=== PATIENT | male | born 1930 | race Caucasian/White ===

== ENCOUNTER 2017-10-28 05:20 | Inpatient (IN) | payer OTHER ==
[2017-10-16 13:01] LABS: HEMATOCRIT 39.6 % (42.0-52.0); HEMOGLOBIN 13.5 gm/dL (14.0-18.0); MCH 33.8 pg (26.0-34.0); MCV 99.3 fL (80.0-100.0); RBC 3.98 mil/uL (4.50-6.00); RDW 13.4 % (10.5-14.5); WBC 5.9 thou/uL (4.0-11.0)
[2017-10-16 13:08] LABS: ALBUMIN 3.7 g/dL (3.4-5.0); CALCIUM 9.8 mg/dL (8.5-10.1); CREATININE 1.8 mg/dL (0.7-1.3); POTASSIUM 4.5 mmol/L (3.5-5.1)
[2017-10-16 13:13] LABS: PROTIME 10.6 Seconds (9.3-11.4)
[2017-10-16 13:40] LABS: URINE BILIRUBIN NEGATIVE (Negative); URINE BLOOD NEGATIVE (Negative); URINE CLARITY CLEAR; URINE COLOR YELLOW; URINE GLUCOSE-RANDOM* NEGATIVE (Negative); URINE KETONES NEGATIVE (Negative); URINE LEUKOCYTES-REFLEX NEGATIVE (Negative); URINE NITRITE-REFLEX NEGATIVE (Negative); URINE PROTEIN (DIPSTICK) NEGATIVE (Negative); URINE UROBILINOGEN 0.2 E.U./dl (0.2-1.0)
[~2017-10-28] VITALS: Ht 195.6 cm; Wt 93.4 kg
[2017-10-28] VITALS (10 sets, daily range): BP systolic 112–142; BP diastolic 55–72
--- NOTE | ~2017-10-28 | HC ---
[facility] [place] [address] CONSULTATION Name: MILTON KELLEY Room #: 405-P [facility] IN ..#: [id number] Admission: 10/28/17 Attend Phys: Lisandro Melo MD Discharge: 11/05/17 Date of : 32 Report #: [id number] THIS REPORT FOR: //name// CC: Lisandro Martinez DATE OF SERVICE: 11/03/2017 HISTORY OF PRESENT ILLNESS: This is an 87-year-old who is not able to provide any reliable history. I talked to the patient's nurses looking after this patient and I reviewed the patient's records. Neurology consultation is requested to evaluate the patient for any etiology for altered mental status. This patient underwent surgery for the hip and he has been confused since the surgery. Nurses tell me he was functional his baseline, but I do not know what his exact status was because I cannot reach the and I have tried to reach her twice. I reviewed his prior records. In some of the prior records, alcohol abuse has been mentioned, especially one from 2014, but I do not know how bad was that and whether he was still using alcohol or not. REVIEW OF SYSTEMS: I carried out 14-point review of system from the records. It looks like this patient has developed some renal problems, but they are improving and his creatinine is back to normal. He does have a history of renal problems in the past also. He is anemic and his hemoglobin on 10/16/2017 was 13.5 and now is running about 8.6. His TSH and vitamin B12 have been checked. They are normal, but his vitamin D is somewhat low. He has not been noticed to have any focal neurological deficit as much as his examination can be carried out. I have not been able to talk to the , but from 14-point review of system, it would appear that rest of the 14-point review of system was noncontributory, except there is a note about seizure disorder in this patient. I need to talk to the to get further history of seizures, but he has been on Keppra, but he has been on Keppra for a long period of time. He has been on multiple medications for his surgery and those narcotics are being cut back. He is also on metformin and I assume that he has diabetes, but he does not provide very good history in that regard. His record indicates that he does have coronary artery disease. Presently, the patient is also on anticoagulant. PAST MEDICAL HISTORY: By record, it looks like he has seizures, but it is difficult to tell what kind of seizure he has. FAMILY HISTORY: He says there is no family history of early strokes, but it is not a very reliable history from him because of confusion. SOCIAL HISTORY: He is . I am not able to reach the patient's to get further social history, especially about his drinking or seizures and we will try to continue to reach her. [address] [address] CONSULTATION Name: ALLIEMILTON Room #: 405-P [facility] IN ..#: [id number] Admission: 10/28/17 Attend Phys: Lisandro Melo MD Discharge: 11/05/17 Date of : 32 Report #: [id number] PHYSICAL EXAMINATION: NEUROLOGIC: His examination indicates he is alert. He is responsive. He could not tell me what date it is, but did tell me what month it is. He could not name the president, but he knew he was in [facility]. His speech looks intact, but his memory and fund of knowledge are diminished. His cooperation for the rest of the examination was extremely poor, and therefore, the examination was very difficult. It looks like he can move all 4 extremities. He could not cooperate with detailed position sense examinations. His tone looks symmetrical. He does not appear to have meningeal sign. He did not cooperate with [id number] or the fundus examination. Reflexes in the upper extremities are symmetrical. He is a very well-developed individual who does not have any dysmorphic features of eyes, ears and face. His hearing and visual looks adequate. He does not appear to have any thyroid mass. It is difficult to tell about his pulses. VITAL SIGNS: His blood pressure is 133/99, respirations 18, pulse is 69 and temperature is 97.8. LABORATORY DATA: His hemoglobin is 8.6, but his sodium is normal. His TSH is mildly diminished and so is vitamin D. He did have a CT scan of the head that does not show any acute abnormality. IMPRESSION: 1. Postoperative confusion. 2. History of seizure. 3. We need to reach the patient's to ask about previous history of alcohol abuse and his alcohol drinking habits recently. 4. Postoperative anemia. 5. Postoperative use of psychotropic medication, which has been stopped. RECOMMENDATIONS: Very difficult to give any recommendation at the moment. I will continue to reach the patient's and get some more history from her. However, because of the prior history of seizures, I will go ahead and get an EEG done in this patient. I will go ahead and give him thiamine until I can get more history from the and especially, in light of his recent kidney failure. I agree with your plan of stopping his narcotic. Narcotics disappear from serum reasonably fast, but whichever have gone into the brain take a little while to metabolize, especially in the elderly population. His rest of the workup will depend upon the outcome of these testings and my discussion with the patient's and EEG because of his prior history of seizure. We will follow up this patient tomorrow and thank you very much for allowing me to share in the management of this patient. <ELECTRONICALLY SIGNED> By: Kale Marx MD 11/09/17 1549 1714 0000 Kale Marx MD /nt
--- NOTE | ~2017-10-28 | O ---
[facility] [place] [address] OPERATIVE REPORT Name: MILTON KELLEY Room #: 405-P [facility] IN .R.#: [id number] Admission: 10/28/17 Attend Phys: Lisandro Melo MD Discharge: Date of : 32 Report #: [id number] THIS REPORT FOR: //name// CC: Lisandro Martinez DATE OF SERVICE: 10/28/2017 PREOPERATIVE DIAGNOSIS: End-stage degenerative arthritis, left hip. POSTOPERATIVE DIAGNOSIS: End-stage degenerative arthritis, left hip. PROCEDURE: Left total hip arthroplasty. SURGEON: Lisandro Melo MD INDICATIONS: This frail, but still active and ambulatory 87-year-old gentleman presents with progressive left hip pain and limited range of motion. Clinical and radiographic findings are consistent with rather severe degenerative arthritis involving the hip. He also has moderate degenerative lumbar spondylosis probably with some radicular pain as well. His primary problem seems to be the left hip. He has tried conservative measure without much benefit. He has elected to go ahead with left total hip arthroplasty. The patient and family all understand well the treatment options and potential risks and benefits. DESCRIPTION OF PROCEDURE: The patient was taken to the operating room where he was placed under general anesthesia. Prophylactic intravenous antibiotics were administered. He was turned to the right lateral decubitus position. The left hip, thigh and leg were meticulously prepped and draped. A slightly curving posterolateral skin incision was made. This was carried through subcutaneous tissues to expose the posterior aspect of the hip joint. The short external rotators and capsule were taken down and preserved and tagged with several #1 Tevdek sutures. The hip was dislocated. Marked degenerative change on both the femoral head and the acetabulum were noted. A femoral neck osteotomy was performed and the canal was opened with hand reamers and hand broaches. The Malik and Nephew hip system was utilized. The Synergy press fit high offset stem system seemed to fit most appropriately. A size 15 stem trial was placed and this seated nicely and appeared to be very secure. The calcar was trimmed down to an appropriate level. Attention was then directed to the acetabulum. Spherical reamers were used, gradually advancing up to a size 60 mm reamer diameter. A 60-mm 3-hole hemispherical Malik and Nephew StikTite shell was then inserted, this was positioned and alignment with his true acetabulum, which placed this in about 45 degrees off of vertical and about 20 degrees of anteversion. It seated nicely and appeared to be secure. In addition, 3 screws were placed through the apex of the shell engaging good periacetabular bone [address] [address] OPERATIVE REPORT Name: MILTON KELLEY Room #: 405-P [facility]..#: [id number] Admission: 10/28/17 Attend Phys: Lisandro Melo MD Discharge: Date of : 32 Report #: [id number] resulting in additional good stability. A 40-mm polyethylene liner with a 10-degree lip was then positioned placing the 10-degree elevated rim at about the 10 o'clock posterior position. This was inserted and seated nicely and appeared to be secure. A trial reduction was performed and once again the size 15 stem fit nicely. A lateral offset and +4 mm neck length was tried. This resulted in satisfactory alignment, range of motion, stability and leg length. The trial component was removed and the permanent Malik and Nephew size 15 Synergy high offset stem was inserted, placing this in about 20 degrees of anteversion. It seated nicely and appeared to be secure. A femoral head was then inserted using the 40-mm diameter head with a +4 mm taper neck. This was impacted onto the Martinez taper neck and seated nicely and appeared to be secure. The hip was reduced and once again alignment, range of motion, stability and leg length were assessed and felt to be satisfactory. The wound was copiously irrigated. Good hemostasis was established. The wound was then closed initially using the #1 Tevdek sutures to close the capsule and posterior short rotators. This resulted in additional overall hip stability. I did not feel Hemovac drain was necessary as there was really no bleeding at this point. The fascia was then closed with multiple #1 Vicryl sutures. The subcutaneous tissues were closed with 0 Monocryl. The skin was closed with skin kevan. A sterile dressing was applied. The patient was awakened and returned to recovery room in good condition. <ELECTRONICALLY SIGNED> By: Lisandro Melo MD 10/29/17 0810 1128 1240 Lisandro Melo MD /nt
--- NOTE | ~2017-10-28 | EEG ---
[facility] [place] [address] ELECTROENCEPHALOGRAM Name: MILTON KELLEY Room #: 405-P [facility] IN M.R.#: [id number] Admission: 10/28/17 Attend Phys: Lisandro Melo MD Discharge: 11/05/17 Date of : 32 Report #: [id number] THIS REPORT FOR: //name// CC: Lisandro Martinez DATE OF SERVICE: 11/03/2017 This patient is being evaluated for altered mental status. EEG was done by placing the electrodes by standard 10-20 system of electrode placement. Both referential and sequential montages were used for recording. Background activity in this patient's EEG is about 8 Hz and 30 microvolts. It is a poorly formed background activity. Background activity is intermixed with theta range slowing on both sides. The patient went to sleep that is associated with bilateral slowing, vertex sharp waves and sleep spindle. Photic stimulation is unremarkable. Throughout the record, no active epileptiform activity was noted. IMPRESSION: This is an abnormal EEG because it is intermixed with theta range slowing on both sides. That is a nonspecific abnormality, which can occur with encephalopathy, effect of psychotropic medication, dementia, etc. Clinical correlation is recommended. <ELECTRONICALLY SIGNED> By: Kale Marx MD 11/09/17 1552 1452 1552 Kale Marx MD /nt
[~2017-10-28 05:20] MED LIST: ACETAMINOPHEN325 M1 PO; ADULT LOW DOSE81 MG PO; ALBUTEROL INH INH; ALEVE220 MG PO; AMARYL4 MG PO; ASPIR 8181 MG PO; ASPIRIN EC81 M1 PO; ASPIRIN325 PO; ATORVASTATIN CA40 MG PO; BACLOFEN 10 MG10 MG PO; COLACE100 MG PO; COUMADIN 2 MG TA2 M1 PO; DOXYCYCLINE 10100 M1 PO; ENDOCET 5-3251 EACH PO; ENOXAPARIN30 MG/0.3 SUBQ; FOSINOPRIL SODI40 M1 PO; FUROSEMIDE 20 M20 M1 PO; GLUCOPHAGE500 MG PO; HYDROCODON-ACE1 EAC5 PO; IBUPROFEN 200200 M1 PO; KEPPRA 500 MG500 M2 PO; LASIX 20 MG TAB20 MG PO; LISINOPRIL40 MG PO; LOPRESSOR 50 MG50 M1 PO; LOPRESSOR50 PO; METFORMIN HCL500 M2 PO; MONOPRIL10 MG PO; NEURONTIN 300300 M1 PO; OMEPRAZOLE 20 M20 MG PO; PLAVIX 75 MG TA75 M1 PO; PREDNISONE 10 M10 M1 PO; PRILOSEC 20 MG20 MG PO; PROAIR HFA8.5 GM INH; PROTONIX40 M1 PO; SIMVASTATIN40 MG PO; TOPROL XL50 MG PO; TRAMADOL 50 MG50 MG PO; TRINATE TABLET1 TAB PO; VITAMIN B-1100 M1 PO; ZOCOR80 MG PO
[2017-10-29] VITALS: BP 116/63
[2017-10-29 04:00] VITALS: BP 115/66
[2017-10-29 05:33] LABS: HEMATOCRIT 28.4 % (42.0-52.0); HEMOGLOBIN 9.8 gm/dL (14.0-18.0); MCHC 34.5 g/dL (28.0-37.0); MCV 98.5 fL (80.0-100.0); RBC 2.88 mil/uL (4.50-6.00); RDW 13.2 % (10.5-14.5); WBC 7.4 thou/uL (4.0-11.0)
[2017-10-29 08:13] VITALS: BP 108/66
[2017-10-29 15:43] VITALS: BP 94/48
[2017-10-29 20:00] VITALS: BP 107/63
[2017-10-30 04:00] VITALS: BP 110/67
[2017-10-30 06:16] LABS: HEMATOCRIT 28.8 % (42.0-52.0); HEMOGLOBIN 9.7 gm/dL (14.0-18.0); MCH 33.5 pg (26.0-34.0); MCHC 33.8 g/dL (28.0-37.0); MCV 99.1 fL (80.0-100.0); RBC 2.91 mil/uL (4.50-6.00); RDW 13.4 % (10.5-14.5); WBC 8.7 thou/uL (4.0-11.0)
[2017-10-30 07:33] VITALS: BP 99/65
[2017-10-30 12:50] VITALS: BP 94/73
[2017-10-30 12:55] LABS: CALCIUM 8.8 mg/dL (8.5-10.1); CREATININE 1.7 mg/dL (0.7-1.3); MAGNESIUM 1.6 mg/dL (1.8-2.4); POTASSIUM 4.1 mmol/L (3.5-5.1)
[2017-10-30 15:28] VITALS: BP 108/60
[2017-10-30 19:44] VITALS: BP 99/56
[2017-10-31 04:00] VITALS: BP 127/70
[2017-10-31 05:46] LABS: HEMATOCRIT 25.1 % (42.0-52.0); HEMOGLOBIN 8.6 gm/dL (14.0-18.0); MCH 34.1 pg (26.0-34.0); MCHC 34.3 g/dL (28.0-37.0); MCV 99.2 fL (80.0-100.0); RBC 2.53 mil/uL (4.50-6.00); RDW 13.6 % (10.5-14.5); WBC 10.8 thou/uL (4.0-11.0)
[2017-10-31 05:58] LABS: CALCIUM 8.3 mg/dL (8.5-10.1); CREATININE 1.8 mg/dL (0.7-1.3); MAGNESIUM 1.8 mg/dL (1.8-2.4); POTASSIUM 4.2 mmol/L (3.5-5.1)
[2017-10-31 09:03] VITALS: BP 114/57
[2017-10-31 09:56] LABS: % SATURATION 11 % (20-39); IRON 14 ug/dL (65-175); TIBC 122 ug/dL (250-450)
[2017-10-31 09:59] LABS: TSH 0.236 uIU/mL (0.358-3.740)
[2017-10-31 18:18] VITALS: BP 123/68
[2017-10-31 19:37] VITALS: BP 118/65
[2017-10-31 21:10] LABS: 25-HYDROXY TOTAL 24.4 ng/mL (30.0-100.0)
[2017-11-01 05:05] VITALS: BP 120/60
[2017-11-01 07:33] VITALS: BP 101/63
[2017-11-01 16:43] VITALS: BP 137/61
[2017-11-01 20:00] VITALS: BP 144/84
[2017-11-02 04:00] VITALS: BP 142/85
[2017-11-02 06:45] LABS: ABSOLUTE NEUTROPHILS 4.9 thou/uL (1.4-8.2); BASOPHILS 0.3 % (0.0-2.0); EOSINOPHILS 2.2 % (0.0-3.0); HEMATOCRIT 23.9 % (42.0-52.0); HEMOGLOBIN 8.1 gm/dL (14.0-18.0); LYMPHOCYTES 11.1 % (24.0-44.0); MCH 33.4 pg (26.0-34.0); MCHC 33.9 g/dL (28.0-37.0); MCV 98.6 fL (80.0-100.0); MONOCYTES 8.3 % (1.0-8.0); PLATELET COUNT 154 thou/uL (150-400); POLYS 78.1 % (36.0-66.0); RBC 2.42 mil/uL (4.50-6.00); RDW 13.5 % (10.5-14.5); WBC 6.2 thou/uL (4.0-11.0)
[2017-11-02 06:51] LABS: CALCIUM 8.5 mg/dL (8.5-10.1); CREATININE 1.4 mg/dL (0.7-1.3); POTASSIUM 3.9 mmol/L (3.5-5.1)
[2017-11-02 08:11] VITALS: BP 159/92
[2017-11-02 21:02] VITALS: BP 161/90
[2017-11-03 05:07] VITALS: BP 141/83
[2017-11-03 06:42] LABS: HEMATOCRIT 25.1 % (42.0-52.0); HEMOGLOBIN 8.6 gm/dL (14.0-18.0); MCH 33.8 pg (26.0-34.0); MCHC 34.3 g/dL (28.0-37.0); MCV 98.5 fL (80.0-100.0); RBC 2.55 mil/uL (4.50-6.00); RDW 13.4 % (10.5-14.5); WBC 6.5 thou/uL (4.0-11.0)
[2017-11-03 07:03] LABS: ALBUMIN 2.1 g/dL (3.4-5.0); CALCIUM 8.6 mg/dL (8.5-10.1); CREATININE 1.1 mg/dL (0.7-1.3); PHOSPHORUS 2.7 mg/dL (2.5-4.9); POTASSIUM 3.7 mmol/L (3.5-5.1)
[2017-11-03 09:16] VITALS: BP 133/99
[2017-11-03 17:54] VITALS: BP 149/92
[2017-11-03 20:00] VITALS: BP 159/90
[2017-11-03 22:06] LABS: LEVETIRACETAM (KEPPRA) 25.2 ug/mL (10.0-40.0)
[2017-11-04 04:00] VITALS: BP 166/92
[2017-11-04 08:33] VITALS: BP 147/92
[2017-11-04 16:30] VITALS: BP 135/76
[2017-11-04 19:55] VITALS: BP 154/78
[2017-11-05 03:22] VITALS: BP 122/81
[2017-11-05 08:55] VITALS: BP 135/81
[2017-11-05] MEDS ORDERED: XARELTO10 MG PO (09:16)
[2017-11-05] MEDS ORDERED: FLOMAX0.4 MG PO (09:16)
[2017-11-05 12:14] VITALS: BP 135/81
== END 2017-11-05 13:35 | DRG 469 ==
LOC: TBA 05:20 → 4N 05:20 → PRE 05:35 → 4N 13:10 → PRE 14:00 → 4N 11-05 13:35
PROVIDERS: Hospitalist; Internal Medicine Geriatric Medicine; Orthopaedic Surgery; Registered Nurse
PROC: 0SRB01A Replacement of Left Hip Joint with Metal Synthetic Substitute, Uncemented, Open Approach (ICD-10-PCS; principal; 2017-10-28)
PROC: 4A00X4Z Measurement of Central Nervous Electrical Activity, External Approach (ICD-10-PCS; 2017-11-04)
DX: M16.12 Unilateral primary osteoarthritis, left hip (principal); G93.40 Encephalopathy, unspecified; D62 Acute posthemorrhagic anemia; N17.9 Acute kidney failure, unspecified; F05 Delirium due to known physiological condition; I25.10 Atherosclerotic heart disease of native coronary artery without angina pectoris; N18.9 Chronic kidney disease, unspecified; E78.5 Hyperlipidemia, unspecified; I12.9 Hypertensive chronic kidney disease with stage 1 through stage 4 chronic kidney disease, or unspecified chronic kidney disease; G40.909 Epilepsy, unspecified, not intractable, without status epilepticus; R33.9 Retention of urine, unspecified; R63.0 Anorexia; Z68.24 Body mass index [BMI] 24.0-24.9, adult; Z79.84 Long term (current) use of oral hypoglycemic drugs; Z79.899 Other long term (current) drug therapy; Z88.0 Allergy status to penicillin
CPT/HCPCS: 10790; 50010; 50101; 50382; 50414; 51412; 51771; 53000; 53367; 56521; 56525; 56527; 62110; 62900; 64031; 70005

== ENCOUNTER 2017-11-25 13:59 | Inpatient (IN) | payer OTHER ==
[~2017-11-25] VITALS: Ht 182.9 cm; Wt 88.5 kg
--- NOTE | ~2017-11-25 | HC ---
[facility] [place] [address] CONSULTATION Name: MILTON KELLEY Room #: 450-P [facility]..#: [id number] Admission: 11/25/17 Attend Phys: Meet Moore MD Discharge: 11/28/17 Date of : 32 Report #: [id number] THIS REPORT FOR: //name// CC: Meet Martinez DATE OF SERVICE: 11/28/2017 PERSONAL PHYSICIAN: Dr. Srinivasa Martinez. CHIEF COMPLAINT: Left heel ulcer. HISTORY OF PRESENT ILLNESS: The patient is an 87-year-old white male who is approximately 1 month status post left hip total arthroplasty. After the hip repair, the patient was discharged to a rehab unit and he supposedly developed a left heel decubitus ulcer. The patient states that he has no pain associated with the ulcer. He was discharged to home with this ulcer and while at home, the past couple of days, his family noted he was having increasing weakness and difficulty ambulating. They brought him back to the Emergency Department. He was admitted. The patient was found to have a urinary tract infection. Otherwise, everything else seems to be within normal limits. We were asked to see the patient for the left heel ulceration for care at this time as well as followup care once he is discharged. The patient denies any previous ulcerations or wounds he could not heal on his own. The patient states otherwise he is actually feeling better now than he was a couple of days ago. PAST MEDICAL HISTORY: Significant for hypertension, previous knee replacement on the left in 2000, right shoulder arthroplasty, high cholesterol, coronary artery disease with cardiac stents, chronic obstructive pulmonary disease. CURRENT MEDICATIONS: Multiple, I reviewed the patient's medication list. DRUG ALLERGIES: PENICILLIN. SOCIAL HISTORY: The patient does not smoke or drink alcohol. FAMILY HISTORY: Not pertinent to current medical condition. REVIEW OF SYSTEMS: CONSTITUTIONAL: The patient denies fevers or chills. NEUROLOGIC: The patient has overall generalized weakness upon admission, which has improved. No isolated weakness in arms or legs. EYES: No complaints. ENT: No complaints. CARDIAC: The patient has no chest pain, palpitations, peripheral edema. RESPIRATORY: The patient has no shortness of breath, cough, wheezes. [address] [address] CONSULTATION Name: MILTON KELLEY Room #: 450-P [facility].#: [id number] Admission: 11/25/17 Attend Phys: Meet Moore MD Discharge: 11/28/17 Date of : 32 Report #: [id number] GASTROINTESTINAL: The patient has no nausea, vomiting, abdominal pain. GENITOURINARY: The patient has no urgency or frequency. MUSCULOSKELETAL: The patient has mild pain in his left hip from the surgery. SKIN: There is a decubitus ulcer on the left heel. PHYSICAL EXAMINATION: VITAL SIGNS: Temperature 36.7, pulse 72, respirations 19, BP 130/64. GENERAL: This is alert and oriented x 3, pleasant, elderly white male who is in no acute distress. HEENT: Normocephalic, atraumatic. Mucous membranes are dry. Pupils are round. Sclerae white. NECK: Supple, nontender. LUNGS: Clear. HEART: Regular. ABDOMEN: Soft, nontender. EXTREMITIES: The patient moves all extremities without difficulty. Distal pulses are 1+ and symmetric, dorsalis pedis and posterior tibial. Evaluation of left heel reveals a left heel ulcer with a rim of granulation tissue and then centrally a soft intact eschar. There is no drainage. It is nontender. No tunneling or undermining. Periulcer is intact without significant erythema, warmth or signs of infection. No other associated ulcerations are noted on the foot or toes. Right heel is intact. NEUROLOGIC: Cranial nerves 2-12 are grossly intact. Motor and sensory grossly intact. LABORATORY DATA: White count 7.1, hemoglobin 9.6, BUN 24, creatinine 1.3, albumin 2.6, prealbumin 20.9. WOUND CARE COURSE: I spoke with the patient that at this point in time given his heel ulcer that developed after his hip surgery I would like to have arterial Doppler performed to evaluate for underlying arterial disease as a contributing factor to the ulceration. This will be ordered for this morning. The patient is actually scheduled for discharge possibly later today to a skilled facility for further rehabilitation. IMPRESSION: 1. Unstageable decubitus ulcer, left heel, present on admission. 2. Status post left total hip arthroplasty one month ago. 3. Generalized debility secondary to #2. 4. Protein calorie malnutrition, severe with an albumin of 2.6. PLAN: We will start Betadine to the heel ulcer daily. The patient is to have heel protection at all times when he is in bed. Arterial Doppler will be ordered to evaluate for underlying arterial disease as a contributing factor to the ulcer. The patient, I think, pending the arterial Dopplers is cleared to go to a skilled facility for further rehabilitation. We will follow the patient at [facility] [address] [place] [address] CONSULTATION Name: MILTON KELLEY Room #: 450-P [facility].#: [id number] Admission: 11/25/17 Attend Phys: Meet Moore MD Discharge: 11/28/17 Date of : 32 Report #: [id number] the rehab facility as well. Also make sure he maximizes his oral protein supplementation for healing. I appreciate the ability to consult. By: [id number] Curt Magdaleno MD /nt
--- NOTE | ~2017-11-25 | HC ---
[facility] [place] [address] CONSULTATION Name: MILTON KELLEY Room #: 450-P [facility] IN .R.#: [id number] Admission: 11/25/17 Attend Phys: Meet Moore MD Discharge: Date of : 32 Report #: [id number] THIS REPORT FOR: //name// CC: Meet Martinez DATE OF SERVICE: 11/27/2017 HISTORY OF PRESENT ILLNESS: This is an 87-year-old white male who had a prior left total hip arthroplasty approximately 4 weeks ago. He was discharged to a group home facility at [facility]. He apparently developed a left heel pressure ulcer. He was discharged to home and his and son noted that he was weak and unable to bear weight and could not walk. He was readmitted to [facility]. He was seen by Orthopedics. X-ray of the hip looks okay. He did have an abnormal UA, but apparently ruled out for urinary tract infection. He does have hypertension, hyperlipidemia, seizure disorder. He has had multiple prior joint replacements. He has been okayed for advancing activity and we are seeing him in rehabilitation medicine consultation. PAST MEDICAL HISTORY: Includes hypertension, knee replacement on the left in 2000, right shoulder arthroplasty, high cholesterol, laminectomy, cardiac stents x 4, COPD, right total knee replacement in April 2011, history of skin ulcers. He had a seizure in August 2017. ALLERGIES: PENICILLIN. HABITS: Former smoker, quit greater than a year ago. No history of alcohol abuse per se per records. SOCIAL HISTORY: He lives in a house with his , no steps, involved son, was unable to ambulate upon coming home from the nursing facility. REVIEW OF SYSTEMS: No current complaints of chest pain or shortness of breath or abdominal discomfort. He did not offer any complaints of hip pain. PHYSICAL EXAMINATION: GENERAL: An 87-year-old white male, in no obvious distress. VITAL SIGNS: Last recorded temperature 97.9, pulse 70, respirations 18, blood pressure 116/60. NEUROLOGIC: He is alert, follows basic 1-step commands. Facies are symmetric. Some decreased shoulder range of motion end range bilaterally. Strength of the upper extremities is grade 4-/5. DTRs are trace to 1. Lower extremities, no focal calf swelling, functional range of motion, strength is grade 3+ to 4-/5. Tone appeared to be intact. ASSESSMENT: An 87-year-old white male with the following problem list: [facility] [address] [place] [address] CONSULTATION Name: MILTON KELLEY Room #: 450-P [facility] IN [facility]#: [id number] Admission: 11/25/17 Attend Phys: Meet Moore MD Discharge: Date of : 32 Report #: [id number] 1. Recent left total hip arthroplasty. 2. Generalized weakness and debilitation. 3. Diabetes mellitus. 4. Multiple prior joint replacements as noted above. 5. Coronary artery disease with prior stenting. 6. History of seizure disorder. 7. Benign prostatic hyperplasia, on Flomax. PLAN: Therapies are further evaluating regarding his current function. Insurance will need to be checked regarding rehab therapy options. By: [id number] Lisandro Baird MD /PMT
[~2017-11-25 13:59] MED LIST changes: +FLOMAX0.4 MG PO; +XARELTO10 MG PO
[2017-11-25 14:03] VITALS: BP 121/72
[2017-11-25 14:36] LABS: ABSOLUTE NEUTROPHILS 4.6 thou/uL (1.4-8.2); BASOPHILS 0.6 % (0.0-2.0); EOSINOPHILS 3.4 % (0.0-3.0); HEMATOCRIT 33.1 % (42.0-52.0); HEMOGLOBIN 10.9 gm/dL (14.0-18.0); LYMPHOCYTES 19.3 % (24.0-44.0); MCH 33.1 pg (26.0-34.0); MCHC 32.9 g/dL (28.0-37.0); MCV 100.5 fL (80.0-100.0); MONOCYTES 10.7 % (1.0-8.0); PLATELET COUNT 268 thou/uL (150-400); RDW 15.7 % (10.5-14.5)
[2017-11-25 14:45] LABS: CALCIUM 9.4 mg/dL (8.5-10.1); CREATININE 1.2 mg/dL (0.7-1.3); POTASSIUM 4.4 mmol/L (3.5-5.1)
[2017-11-25 14:46] LABS: MAGNESIUM 1.9 mg/dL (1.8-2.4)
[2017-11-25] MEDS ORDERED: METFORMIN HCL500 MG PO (15:45)
[2017-11-25] MEDS ORDERED: NEURONTIN 300300 M1 PO (15:45)
[2017-11-25 15:49] LABS: URINE BILIRUBIN NEGATIVE (Negative); URINE BLOOD NEGATIVE (Negative); URINE CLARITY CLEAR; URINE COLOR YELLOW; URINE GLUCOSE-RANDOM* NEGATIVE (Negative); URINE KETONES NEGATIVE (Negative); URINE LEUKOCYTES-REFLEX NEGATIVE (Negative); URINE NITRITE-REFLEX POSITIVE (Negative); URINE PROTEIN (DIPSTICK) NEGATIVE (Negative)
[2017-11-25 15:58] LABS: CRYSTALS None Seen /LPF (None Seen); HYALINE CASTS 4-10 Moderate /LPF (None Seen); MUCUS >6 Heavy strn/LPF (None Seen); SQUAMOUS 0-3 Few /LPF (0-3); URINE RBC None Seen /HPF (0-2); URINE WBC-REFLEX 0-5 Rare /HPF (0-5)
[2017-11-25 17:34] VITALS: BP 126/68
[2017-11-25 17:38] VITALS: BP 128/67
[2017-11-25 18:01] VITALS: BP 128/67
[2017-11-25 19:08] VITALS: BP 113/60
[2017-11-26] VITALS (7 sets, daily range): BP systolic 101–142; BP diastolic 55–94
[2017-11-26 06:19] LABS: HEMATOCRIT 28.7 % (42.0-52.0); HEMOGLOBIN 9.8 gm/dL (14.0-18.0); MCH 33.5 pg (26.0-34.0); MCV 98.3 fL (80.0-100.0); RBC 2.92 mil/uL (4.50-6.00); RDW 15.2 % (10.5-14.5); WBC 6.1 thou/uL (4.0-11.0)
[2017-11-26 06:36] LABS: CALCIUM 9.3 mg/dL (8.5-10.1); CREATININE 1.2 mg/dL (0.7-1.3); POTASSIUM 3.6 mmol/L (3.5-5.1)
[2017-11-27 03:16] VITALS: BP 105/55
[2017-11-27 06:42] LABS: ABSOLUTE NEUTROPHILS 4.7 thou/uL (1.4-8.2); BASOPHILS 0.7 % (0.0-2.0); EOSINOPHILS 3.7 % (0.0-3.0); HEMATOCRIT 28.1 % (42.0-52.0); HEMOGLOBIN 9.6 gm/dL (14.0-18.0); MCH 33.6 pg (26.0-34.0); MCHC 34.1 g/dL (28.0-37.0); MCV 98.7 fL (80.0-100.0); MONOCYTES 9.8 % (1.0-8.0); PLATELET COUNT 209 thou/uL (150-400); POLYS 65.8 % (36.0-66.0); RBC 2.85 mil/uL (4.50-6.00); RDW 15.4 % (10.5-14.5); WBC 7.1 thou/uL (4.0-11.0)
[2017-11-27 07:02] LABS: ALBUMIN 2.6 g/dL (3.4-5.0); CALCIUM 9.1 mg/dL (8.5-10.1); CREATININE 1.3 mg/dL (0.7-1.3); PHOSPHORUS 3.1 mg/dL (2.5-4.9); POTASSIUM 4.2 mmol/L (3.5-5.1)
[2017-11-27 08:00] VITALS: BP 116/60
[2017-11-27 08:14] LABS: % SATURATION 23 % (20-39); IRON 35 ug/dL (65-175); TIBC 153 ug/dL (250-450)
[2017-11-27 15:26] VITALS: BP 119/62
[2017-11-27 21:40] VITALS: BP 133/70
[2017-11-28 05:27] VITALS: BP 130/64
[2017-11-28 07:35] VITALS: BP 139/59
== END 2017-11-28 16:30 | DRG 553 ==
LOC: ER 13:59 → EROBS 16:11 → 4W 16:11
PROVIDERS: Emergency Medicine; Hospitalist; Registered Nurse
DX: M16.12 Unilateral primary osteoarthritis, left hip (principal); E43 Unspecified severe protein-calorie malnutrition; N39.0 Urinary tract infection, site not specified; I10 Essential (primary) hypertension; Z96.653 Presence of artificial knee joint, bilateral; Z96.611 Presence of right artificial shoulder joint; E78.00 Pure hypercholesterolemia, unspecified; K21.9 Gastro-esophageal reflux disease without esophagitis; J44.9 Chronic obstructive pulmonary disease, unspecified; I25.10 Atherosclerotic heart disease of native coronary artery without angina pectoris; G40.909 Epilepsy, unspecified, not intractable, without status epilepticus; N40.0 Benign prostatic hyperplasia without lower urinary tract symptoms; L89.620 Pressure ulcer of left heel, unstageable; K59.00 Constipation, unspecified; D64.9 Anemia, unspecified; E11.65 Type 2 diabetes mellitus with hyperglycemia; Z95.5 Presence of coronary angioplasty implant and graft; Z90.49 Acquired absence of other specified parts of digestive tract; Z98.42 Cataract extraction status, left eye; Z98.41 Cataract extraction status, right eye; Z88.0 Allergy status to penicillin; Z87.891 Personal history of nicotine dependence; Z68.26 Body mass index [BMI] 26.0-26.9, adult; Z79.82 Long term (current) use of aspirin; Z79.899 Other long term (current) drug therapy
CPT/HCPCS: 10045

== ENCOUNTER → 2018-01-14 | Outpatient (CLI) | payer OTHER ==
[~2018-01-14] MED LIST changes: +METFORMIN HCL500 MG PO
== END ==
LOC: HYPER 06:42
DX: E11.621 Type 2 diabetes mellitus with foot ulcer (principal); I70.244 Atherosclerosis of native arteries of left leg with ulceration of heel and midfoot; L97.421 Non-pressure chronic ulcer of left heel and midfoot limited to breakdown of skin; L89.620 Pressure ulcer of left heel, unstageable; I10 Essential (primary) hypertension; I25.10 Atherosclerotic heart disease of native coronary artery without angina pectoris; E78.00 Pure hypercholesterolemia, unspecified; E46 Unspecified protein-calorie malnutrition; K21.9 Gastro-esophageal reflux disease without esophagitis; J43.9 Emphysema, unspecified; Z79.84 Long term (current) use of oral hypoglycemic drugs; Z96.652 Presence of left artificial knee joint; Z98.42 Cataract extraction status, left eye; Z85.828 Personal history of other malignant neoplasm of skin; Z98.41 Cataract extraction status, right eye; Z96.642 Presence of left artificial hip joint; Z87.891 Personal history of nicotine dependence

== ENCOUNTER → 2018-01-29 | Outpatient (CLI) | payer OTHER | LOC: HYPER 07:00 | DX: E11.621 Type 2 diabetes mellitus with foot ulcer (principal); L89.623 Pressure ulcer of left heel, stage 3; I70.245 Atherosclerosis of native arteries of left leg with ulceration of other part of foot; L97.421 Non-pressure chronic ulcer of left heel and midfoot limited to breakdown of skin; I10 Essential (primary) hypertension; I25.10 Atherosclerotic heart disease of native coronary artery without angina pectoris; E78.00 Pure hypercholesterolemia, unspecified; E46 Unspecified protein-calorie malnutrition; K21.9 Gastro-esophageal reflux disease without esophagitis; J43.9 Emphysema, unspecified; Z96.642 Presence of left artificial hip joint; Z96.652 Presence of left artificial knee joint; Z79.84 Long term (current) use of oral hypoglycemic drugs; Z85.828 Personal history of other malignant neoplasm of skin; Z98.42 Cataract extraction status, left eye; Z98.41 Cataract extraction status, right eye; Z87.891 Personal history of nicotine dependence ==

== ENCOUNTER 2018-02-05 15:43 | Inpatient (IN) | payer OTHER ==
[~2018-02-05] VITALS: Ht 193 cm; Wt 86.0 kg
--- NOTE | ~2018-02-05 | EKG ---
[place] [address] [facility] [place] [address] ELECTROCARDIOGRAM REPORT Name: IMLTON KELLEY Jovanni [id number] Admission: 02/05/18 Attend Phys: Discharge: Date of : 32 Report #: [id number] THIS REPORT FOR: //name// [facility] ED Test Date: 2018-02-05 Test Time: 16:00:57 Pat Name: MILTON KELLEY Department: Room: Gender: Director Risk: DAKSHA : 1930 Requested By: Angel Ulloa Order Number: [id number] MD: Gabino Snell Measurements Intervals [place] Rate: 115 P: NE: QRS: -4 QRSD: 95 T: 47 QT: 331 QTc: 458 Interpretive Statements Atrial fibrillation Compared to ECG 04/15/2015 08:03:11 Sinus rhythm no longer present Electronically Signed On 02-05-2018 17:13:41 CDT by Gabino Snell [email or web address] <ELECTRONICALLY SIGNED> By: Gabino Snell MD, [facility] 02/05/18 1713 [address] [facility] Gabino Snell MD, FACC /EPI
--- NOTE | ~2018-02-05 | HC ---
[facility] [place] [place] [address] CONSULTATION Name: MILTON KELLEY Room #: 218-P [facility] IN ..#: [id number] Admission: 02/05/18 Attend Phys: Arianna Wolff Discharge: Date of : 32 Report #: [id number] THIS REPORT FOR: //name// CC: Srinivasa Wolff REASON FOR CONSULTATION: Atrial fibrillation. HISTORY OF PRESENT ILLNESS: The patient is an 87-year-old gentleman with history of prior stenting of the marginal branch and mid LAD in 2012. He has a very remote history of circumflex and distal right coronary stenting. He has dyslipidemia, COPD, hypertension and earlier in the year, underwent elective hip replacement. Prior to his hip operation, he had a normal nuclear stress study performed; normal ejection fraction. His post-procedural hip course has been complicated with ischemic heel ulcer with peripheral interventsion. He has had several rehab stays and has significant functional debility. He is quite frail and has had several non-syncopal falls. Yesterday, his visiting therapist came to his home, his oxygen saturations were low. He was weak. He reported that he has had a fall, at least 2 falls. He was seen in the Emergency Department, where an EKG was performed, demonstrating atrial fibrillation. It is not clear how long he has had this dysrhythmia. He denies palpitations. He denies symptoms from the atrial fibrillation including shortness of breath, palpitations or syncope. 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 SOCIAL HISTORY: Former smoker, quit 50 years ago. FAMILY HISTORY: Notable for cancer and diabetes. REVIEW OF SYSTEMS: All systems negative except as that noted above. PHYSICAL EXAMINATION: GENERAL: Reveals a frail elderly gentleman who is alert and in no distress. VITAL SIGNS: Blood pressure is 107/67, heart rate of 85 and irregular. He is afebrile, 6 feet 4 inches tall, 200 pounds. HEENT: There are neither xanthelasma, subcutaneous xanthomata, oral mucosal or digital cyanosis or kyphoscoliosis present. CHEST: Clear to auscultation and percussion. CARDIAC: Reveals an irregularly irregular rhythm with a normal S1, S2. ABDOMEN: Soft and nontender. EXTREMITIES: Without cyanosis, clubbing or edema. Radial pulses are 2+. NEUROLOGIC: He is alert with a nonfocal exam. [address] [address] CONSULTATION Name: ALLIEMILTON Baig Room #: 218-P [facility] IN M.R.#: [id number] Admission: 02/05/18 Attend Phys: Arianna Wolff Discharge: Date of : 32 Report #: [id number] LABORATORY DATA: Sodium 140, potassium 4.6, creatinine 1.6. ProBNP of 7437. White count 9.5, hemoglobin 11, hematocrit 35, platelet count 234. Chest x-ray is normal. EKG: Atrial fibrillation with a moderate ventricular response. IMPRESSION: 1. Atrial fibrillation of unknown chronicity. This is a largely asymptomatic rhythm disturbance. 2. Coronary artery disease with recent normal stress study. 3. Recurrent falls; general debility. 4. Diabetes. 5. Peripheral vascular disease. RECOMMENDATIONS: 1. Adjust rate controlling medications. 2. The patient is not a favorable anticoagulation candidate given his frailty and frequent non-syncopal falls. 3. Consider cardioversion once safe to be fully anticoagulated and once functional status improves. A rate control strategy is recommended for now. <ELECTRONICALLY SIGNED> By: Gabino Snell MD, [facility] 02/06/18 1046 0800 0822 Gabino Snell MD, FACC /nt
--- NOTE | ~2018-02-05 | 2DMMODE ---
[facility] [address] [place] [address] 2 D/M-MODE ECHOCARDIOGRAM Name: MILTON KELLEY Room #: 218-P [facility] IN ..#: [id number] Admission: 02/05/18 Attend Phys: Arianna Aggarwal Discharge: Date of : 32 Date of Service: 02/06/18 0816 Report #: [id number] THIS REPORT FOR: //name// APPROVED REPORT Study performed: 02/06/2018 06:55:41 EXAM: Comprehensive 2D, Doppler, and color-flow Echocardiogram Patient Location: Bedside Room #: 218 Status: routine BSA: 2.22 HR: 110 bpm BP: 107/67 mmHg Rhythm: Atrial Fibrillation Other Information Study Quality: Adequate Indications Afib. Hx: CAD, stents, COPD, HTN, DM 2D Dimensions RVDd: 31.99 mm LVEF(%): 50.19 (>50%) IVSd: 12.00 (7-11mm) LVOT Diam: 24.88 (18-24mm) LVDd: 51.26 mm PWd: 10.72 (7-11mm) Ascending Ao: 42.46 (22-36mm) LVDs: 38.11 (25-40mm) Aortic Root: 44.37 mm Oh's LVEF: 50.19 % Volumes Left Atrial Volume (Systole) Single Plane 4CH: 61.43 mL Single Plane 2CH: 55.32 mL LA ESV Index: 28.00 mL/m2 Aortic Valve AoV Peak Malik.: 0.93 m/s AO Peak Gr.: 4.36 mmHg LVOT Max P.13 mmHg LVOT Max V: 0.73 m/s YAHAIRA Vmax: 3.81 cm2 Mitral Valve MV Decel. Time: 127.84 ms MV E Max Malik.: 0.83 m/s [facility] [place] [address] [place] [address] 2 D/M-MODE ECHOCARDIOGRAM Name: MILTON KELLEY Room #: 218-P [facility] IN .R.#: [id number] Admission: 02/05/18 Attend Phys: Arianna Aggarwal Discharge: Date of : 32 Date of Service: 02/06/18 0816 Report #: [id number] Pulmonary Valve PV Peak Malik.: 0.75 m/s PV Peak Gr.: 2.29 mmHg Tricuspid Valve TR Peak Malik.: 1.80 m/s TR Peak Gr.: 14.00 mmHg Left Ventricle The left ventricle is normal size. There is normal LV segmental wall motion. Mild basal septal hypertrophy is present. Left ventricular systolic function is normal. LVEF is 55%. This study is not technically sufficient to allow evaluation of the LV diastolic function due to atrial fibrillation. Right Ventricle The right ventricle is normal size. The right ventricular systolic function is normal. Atria The left atrium size is normal. The right atrium size is normal. Aortic Valve The aortic valve is mildly sclerotic. Trace to mild aortic regurgitation. There is no aortic valvular stenosis. Mitral Valve The mitral valve is normal in structure. Mild mitral regurgitation. Tricuspid Valve The tricuspid valve is normal in structure. Trace to mild tricuspid regurgitation. Estimated PAP is 15mmHg plus the right atrial pressure. Pulmonic Valve The pulmonary valve is normal in structure. Trace pulmonic regurgitation. Great Vessels Aortic root is dilated at 4.4cm. Ascending aorta is dilated at 4.2cm. IVC is not well visualized. Pericardium There is no pericardial effusion. [facility] [address] [place] [address] 2 D/M-MODE ECHOCARDIOGRAM Name: ALLIEMILTON Room #: 218-P [facility] IN ..#: [id number] Admission: 02/05/18 Attend Phys: Arianna Aggarwal Discharge: Date of : 32 Date of Service: 02/06/1816 Report #: [id number] <Conclusion> Left ventricular systolic function is normal. There is normal LV segmental wall motion. LVEF is 55%. The aortic valve is mildly sclerotic. Trace to mild aortic regurgitation, no stenosis. The mitral valve is normal in structure. Mild mitral regurgitation. Ascending aorta is dilated at 4.2cm. There is no pericardial effusion. <ELECTRONICALLY SIGNED> By: Gabino Snell MD, [facility] 02/06/18815 5 5 Gabino Snell MD, [facility] /INF
--- NOTE | ~2018-02-05 | HC ---
[facility] [place] [address] CONSULTATION Name: MILTON KELLEY Room #: 218-P [facility] IN .R.#: [id number] Admission: 02/05/18 Attend Phys: Arianna Wolff Discharge: Date of : 32 Report #: [id number] THIS REPORT FOR: //name// CC: Srinivasa Wolff DATE OF SERVICE: 02/06/2018 CHIEF COMPLAINT: Heel ulceration. HISTORY OF PRESENT ILLNESS: This is an 87-year-old male patient with whom I am familiar from wound care evaluation in the outpatient setting. He has had a heel ulceration. He has had peripheral arterial disease and status post percutaneous intervention and is scheduled to go additional possible stenting to the trifurcation vessels involving the left lower extremity. PAST MEDICAL HISTORY: Positive for urinary tract infection, weakness, pain in the left hip, congestive heart failure, hypertension, atrial fibrillation and pressure ulceration to the left heel. ALLERGIES: PENICILLIN. MEDICATIONS: Include acetaminophen, aspirin, atenolol, atorvastatin, diltiazem, enoxaparin, gabapentin, hydrocodone, Keppra, metoprolol, Nitrostat, ondansetron, sodium chloride, tamsulosin, and zolpidem. FAMILY HISTORY: Noncontributory. SOCIAL HISTORY: Negative for current alcohol or tobacco use. He is , accompanied by his . REVIEW OF SYSTEMS: CONSTITUTIONAL: The patient denies fever, chills, weight loss. NEUROLOGICAL: The patient denies focal weakness. ENT: The patient denies earache, nasal drainage or sore throat. CARDIOVASCULAR: The patient denies chest pain, palpitations, or diaphoresis. PULMONARY: The patient denies cough or shortness of breath. GASTROINTESTINAL: The patient denies nausea or abdominal pain. ORTHOPEDIC: The patient is aware of the ulceration in the left heel. Other systems in a 14-point review of systems are negative. PHYSICAL EXAMINATION: VITAL SIGNS: At this time include pulse 73, respiration of 18, blood pressure 99/63, temperature 98.2. GENERAL: This is a chronically ill-appearing male patient, who appears to be in minimal distress. [address] [address] CONSULTATION Name: MILTON KELLEY Room #: 218-P [facility] IN M.R.#: [id number] Admission: 02/05/18 Attend Phys: Arianna Wolff Discharge: Date of : 32 Report #: [id number] HEAD: Normocephalic. NECK: Supple. LUNGS: Clear. HEART: Regular rhythm. ABDOMEN: Soft. Bowel sounds present. EXTREMITIES: Lower extremities demonstrate diminished distal pulses. He has ulceration on the posterior portion of the left heel. Has actually improved since the last time I saw. There is a mix of granulation fibrin and seems close to skin level in terms of total depth. There is no obvious odor or tunneling or undermining noted at this time. CLINICAL IMPRESSION: 1. Pressure ulceration to the left heel, improving. 2. Peripheral arterial disease, status post percutaneous intervention, pending additional angiography. 3. Hypotension. 4. Atrial fibrillation. RECOMMENDATIONS: At this point in time, we will recommend Prevalon boots for pressure prophylaxis. He is in the midst of receiving percutaneous intervention for peripheral arterial disease. He has undergone angioplasty by Dr. Gallagher. I do not feel that he needs urgent care while in the hospital. I think this could be continued to be pursued on an outpatient basis. We will recommend ongoing local care to the heel and Dakin's moist gauze dressing for now. All questions have been answered with the family at bedside. <ELECTRONICALLY SIGNED> By: Manav Mcmillan MD 02/07/18 1131 2036 2159 Manav Mcmillan MD /nt
[2018-02-05 15:53] VITALS: BP 96/68
[2018-02-05 16:31] LABS: BASOPHILS 0.6 % (0.0-2.0); EOSINOPHILS 2.1 % (0.0-3.0); HEMATOCRIT 35.1 % (42.0-52.0); HEMOGLOBIN 11.5 gm/dL (14.0-18.0); LYMPHOCYTES 15.1 % (24.0-44.0); MCH 32.4 pg (26.0-34.0); MCHC 32.9 g/dL (28.0-37.0); MCV 98.4 fL (80.0-100.0); MONOCYTES 8.5 % (1.0-8.0); PLATELET COUNT 234 thou/uL (150-400); POLYS 73.7 % (36.0-66.0); RBC 3.56 mil/uL (4.50-6.00); RDW 14.5 % (10.5-14.5); WBC 9.5 thou/uL (4.0-11.0)
[2018-02-05 16:50] LABS: ANION GAP 8 mmol/L (7-16); BUN 27 mg/dL (7-18); CALCIUM 9.8 mg/dL (8.5-10.1); CHLORIDE 106 mmol/L (98-107); CO2 26 mmol/L (21-32); CREATININE 1.6 mg/dL (0.7-1.3); GLUCOSE 137 mg/dL (74-106); POTASSIUM 4.6 mmol/L (3.5-5.1); SODIUM 140 mmol/L (136-145)
[2018-02-05 16:54] LABS: MAGNESIUM 2.3 mg/dL (1.8-2.4); SGOT 22 U/L (15-37); SGPT 25 U/L (30-65); TOTAL BILIRUBIN 0.5 mg/dL (<0.1-1.0); TOTAL PROTEIN 7.3 g/dL (6.4-8.2); TROPONIN-I < 0.04 ng/mL (<0.06)
[2018-02-05 18:00] VITALS: BP 104/74
[2018-02-05] MEDS ORDERED: NITROGLYCERIN0.4 MG SUBLING (18:06)
[2018-02-05] MEDS ORDERED: MELATONIN3 MG PO (18:06)
[2018-02-05] MEDS ORDERED: UNICOMPLEX M TA1 TA1 PO (18:06)
[2018-02-05] MEDS ORDERED: TYLENOL325 MG PO (18:06)
[2018-02-05] MEDS ORDERED: PLAVIX 75 MG TA75 M1 PO (18:07)
[2018-02-05 18:13] LABS: CHOLESTEROL 110 mg/dL (<200); HDL CHOLESTEROL 41 mg/dL (>40); LDL CHOLESTEROL 60 mg/dL (<100); TC:HDL 2.7 Ratio (Not establshd); TRIGLYCERIDE 47 mg/dL (<150); VLDL 9 mg/dL (<40)
[2018-02-05 18:17] LABS: SERUM ASSESSMENT Clear
[2018-02-05 18:40] LABS: TSH 0.622 uIU/mL (0.358-3.740)
[2018-02-05 19:00] VITALS: BP 114/67
[2018-02-05 20:00] VITALS: BP 113/75
[2018-02-06] VITALS (7 sets, daily range): BP systolic 87–108; BP diastolic 58–73
[2018-02-06 18:12] LABS: URINE BILIRUBIN NEGATIVE (Negative); URINE BLOOD NEGATIVE (Negative); URINE CLARITY CLEAR; URINE COLOR YELLOW; URINE GLUCOSE-RANDOM* NEGATIVE (Negative); URINE KETONES NEGATIVE (Negative); URINE LEUKOCYTES-REFLEX NEGATIVE (Negative); URINE NITRITE-REFLEX NEGATIVE (Negative); URINE PROTEIN (DIPSTICK) TRACE (Negative); URINE UROBILINOGEN 0.2 E.U./dl (0.2-1.0)
[2018-02-06 18:47] LABS: CALCIUM 8.6 mg/dL (8.5-10.1); CREATININE 1.3 mg/dL (0.7-1.3); MAGNESIUM 1.8 mg/dL (1.8-2.4); POTASSIUM 4.5 mmol/L (3.5-5.1)
[2018-02-06 18:58] LABS: APTT 29.6 Seconds (24.5-32.8); PROTIME 10.4 Seconds (9.3-11.4)
[2018-02-07 03:05] VITALS: BP 118/71
[2018-02-07 05:54] LABS: ABSOLUTE NEUTROPHILS 2.5 thou/uL (1.4-8.2); BASOPHILS 0.9 % (0.0-2.0); EOSINOPHILS 6.4 % (0.0-3.0); HEMATOCRIT 28.2 % (42.0-52.0); LYMPHOCYTES 33.6 % (24.0-44.0); MCH 32.6 pg (26.0-34.0); MCHC 33.5 g/dL (28.0-37.0); MCV 97.3 fL (80.0-100.0); PLATELET COUNT 191 thou/uL (150-400); POLYS 49.1 % (36.0-66.0); RBC 2.89 mil/uL (4.50-6.00); RDW 14.2 % (10.5-14.5); WBC 5.1 thou/uL (4.0-11.0)
[2018-02-07 05:55] LABS: HEMOGLOBIN 9.4 gm/dL (14.0-18.0)
[2018-02-07 05:56] LABS: CREATININE 1.2 mg/dL (0.7-1.3); POTASSIUM 3.9 mmol/L (3.5-5.1)
[2018-02-07 08:00] VITALS: BP 127/97
[2018-02-07 12:00] VITALS: BP 123/70
[2018-02-07 14:22] VITALS: BP 123/70
[2018-02-07] MEDS ORDERED: DILTIAZEM 24HR120 M1 PO (14:44)
[2018-02-07] MEDS ORDERED: MIRALAX17 GM PO (14:44)
[2018-02-07 15:11] VITALS: BP 123/70
[2018-02-07 15:42] VITALS: BP 123/70
== END 2018-02-07 16:30 | disposition home health service (06) | DRG 314 ==
LOC: ER 15:43 → EROBS 17:43 → 2N 17:43 → ENTRNSPT 02-07 16:19 → 2N 02-07 16:30
PROVIDERS: Emergency Medicine; Hospitalist
DX: I95.9 Hypotension, unspecified (principal); L89.623 Pressure ulcer of left heel, stage 3; I48.0 Paroxysmal atrial fibrillation; E11.51 Type 2 diabetes mellitus with diabetic peripheral angiopathy without gangrene; E78.00 Pure hypercholesterolemia, unspecified; J44.9 Chronic obstructive pulmonary disease, unspecified; Z96.653 Presence of artificial knee joint, bilateral; I11.0 Hypertensive heart disease with heart failure; Z96.619 Presence of unspecified artificial shoulder joint; I25.10 Atherosclerotic heart disease of native coronary artery without angina pectoris; E86.9 Volume depletion, unspecified; R29.6 Repeated falls; Z96.649 Presence of unspecified artificial hip joint; G40.909 Epilepsy, unspecified, not intractable, without status epilepticus; D64.9 Anemia, unspecified; I71.6 Thoracoabdominal aortic aneurysm, without rupture; K21.9 Gastro-esophageal reflux disease without esophagitis; Z95.5 Presence of coronary angioplasty implant and graft; Z90.49 Acquired absence of other specified parts of digestive tract; Z98.42 Cataract extraction status, left eye; Z98.41 Cataract extraction status, right eye; Z88.0 Allergy status to penicillin; Z87.891 Personal history of nicotine dependence; Z79.82 Long term (current) use of aspirin; Z79.899 Other long term (current) drug therapy
CPT/HCPCS: 10194

== ENCOUNTER 2018-02-10 14:27 | Inpatient (IN) | payer OTHER ==
[~2018-02-10] VITALS: Ht 193 cm; Wt 99.4 kg
--- NOTE | ~2018-02-10 | EKG ---
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 <ELECTRONICALLY SIGNED> By: Jarrell Mittal MD 02/13/18 0754 0708 0708 Jarrell Mittal MD /EPI
--- NOTE | ~2018-02-10 | EKG ---
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 : 1930 Requested By: Juan Stack Order Number: [id number] MD: Gabino Snell Measurements Intervals [place] Rate: 143 P: SC: QRS: -18 QRSD: 93 T: 159 QT: 322 QTc: 497 Interpretive Statements Atrial fibrillation with rapid V-rate Ventricular premature complex Inferior infarct, old Nonspecific ST and T wave abnormality No previous ECG available for comparison Electronically Signed On 02-12-2018 7:52:37 CDT by Gabino Snell [email or web address] <ELECTRONICALLY SIGNED> By: Gabino Snell MD, [facility] 02/12/18 0752 1518 1518 Gabino Snell MD, [facility] /EPI
--- NOTE | ~2018-02-10 | HC ---
[facility] [place] [address] CONSULTATION Name: MILTON KELLEY Room #: 240-P [facility] IN ..#: [id number] Admission: 02/10/18 Attend Phys: Juan Stack MD Discharge: Date of : 32 Report #: [id number] THIS REPORT FOR: //name// CC: Srinivasa Stack DATE OF SERVICE: 02/17/2018 HISTORY OF PRESENT ILLNESS: An 87-year-old white male with history of prior left total hip arthroplasty on 10/28/2017 complicated by some delirium, alcohol withdrawal. He has had several hospitalizations as well as a long term facility stay. He end up being readmitted at this time with persistent diarrhea, was noted to have sepsis with C. diff diagnosed with atrial fibrillation, acute renal failure, C. diff colitis, protein-calorie malnutrition. He has been on PPN. He has been noted to have an unintentional 80-pound weight loss over the last 1-1/2 years. Surgery is involved. He is noted to have duodenitis on CT and there is a consideration for a possible subtotal colectomy with ileostomy. He is currently tolerating a liquid diet and there is consideration for advancing his diet as per discussion with Gastroenterology. He is quite debilitated with medical complexity. He also has a left heel ulcer stage 3 with wound care involved. We are seeing him in rehabilitation medicine consultation. PAST MEDICAL HISTORY: As noted above. He has a history of atrial fibrillation, CHF, prior left total hip replacement, peripheral vascular disease with arterial intervention, left lower extremity. HABITS: Former tobacco abuse, quit greater than a year ago. MEDICATIONS: Please see the full medication listing. This list includes vitamins, herbals, and supplements. SOCIAL HISTORY: Lives in a house with his , 2 steps in. They do have a stair glide, but it is only a partial stair glide. There are still 5 steps that he needs to go up and down. They cannot have a bed on that ground level and he will need to be able to go up and down steps. He has been utilizing a front-wheeled walker. is retired. There is an involved son. REVIEW OF SYSTEMS: Did not offer any current complaints of chest pain, shortness of breath or abdominal discomfort. He has had a couple of stools, but it looks like they are decreasing. PHYSICAL EXAMINATION: GENERAL: An 87-year-old white male in no obvious distress. VITAL SIGNS: Last recorded temperature 97.6, pulse 54, respirations 19, blood pressure 120/64[place] [address] CONSULTATION Name: MILTON KELLEY Room #: 240-P [facility] IN ..#: [id number] Admission: 02/10/18 Attend Phys: Juan Stack MD Discharge: Date of : 32 Report #: [id number] NEUROLOGIC: He is alert, will follow basic 1 step commands. Facies are symmetric. He has functional range of motion of both upper extremities with strength to grade 4-/5. DTRs are trace to 1. In his lower extremities, left heel is dressed. There is no focal calf swelling. Strength is a grade 3+ to 4-/5. DTRs are trace to 1. Transfers were min assist. He did ambulate 50 feet min assist with the walker. In occupational therapy, he is standby assistance for grooming, needing contact guard to try to transfer on and off the toilet with the riser. ASSESSMENT: An 87-year-old white male with the following problem list: 1. Medical complexity with generalized debilitation. 2. Clostridium difficile with Pseudomembranous colitis. 3. Atrial fibrillation. 4. Left heel wound. 5. Septic shock. 6. Renal insufficiency. 7. History of congestive heart failure. 8. Protein-calorie malnutrition, on PPN. 9. History of coronary artery disease with stents. PLAN: Continues on the PPN for now. Encouraging him to further improve his functional mobility and ADLs with PT and OT. Insurance will need to be checked regarding rehab therapy options. We will be glad to follow along with you. <ELECTRONICALLY SIGNED> By: Lisandro Baird MD 02/21/18 1228 1427 0039 Lisandro Baird MD /[facility]
--- NOTE | ~2018-02-10 | HC ---
[facility] [place] [address] CONSULTATION Name: MILTON KELLEY Room #: 240-P [facility] IN ..#: [id number] Admission: 02/10/18 Attend Phys: Juan Stack MD Discharge: Date of : 32 Report #: [id number] THIS REPORT FOR: //name// CC: Srinivasa Stack REFERRAL PHYSICIAN: Dr. Stack. REASON FOR REFERRAL: Acute hypoxic respiratory failure. HISTORY OF PRESENT ILLNESS: The patient is an 87-year-old white male who was admitted on 02/10 with a fall. The patient had complaints of weakness and diarrhea 24 hours prior to presentation. Since then, the patient has been found to have C. difficile colitis with severe sepsis, atrial fibrillation with rapid ventricular response, acute kidney injury. Overnight, the patient became hypoxic. He was placed on BiPAP. With persistent hypoxia, pulmonary consultation was requested. Currently, he is on BiPAP, appears somewhat stable, and he states that he is not dyspneic. Portable chest x-ray performed earlier today shows bibasilar. This appears to be new since admission. PAST MEDICAL HISTORY: As mentioned above including atrial fibrillation, history of heart failure, past history of C. difficile colitis, coronary artery disease, COPD, diabetes mellitus type 2, hypertension and peripheral vascular disease. PAST SURGICAL HISTORY: Includes prior back surgery, cholecystectomy, knee arthroscopic surgery, shoulder surgery. ALLERGIES: PENICILLIN, WHICH CAUSES ANAPHYLAXIS. CURRENT MEDICATIONS: List reviewed. FAMILY HISTORY: Remarkable for neoplasm, type unspecified History of diabetes. SOCIAL HISTORY: The patient has smoked, but quit many years ago. There is remote history of alcohol abuse. REVIEW OF SYSTEMS: Deferred as currently the patient is on BiPAP. PHYSICAL EXAMINATION: GENERAL: He is awake, alert, appears to be stable, tolerating BiPAP. VITAL SIGNS: Temperature is 98.7 degrees Fahrenheit, pulse is 70, respiratory rate is 20, blood pressure is 90/50 mmHg, saturation 98% on FiO2 of 100%. HEENT: Normocephalic, atraumatic. [facility] [address] [place] [address] CONSULTATION Name: MILTON KELLEY Room #: 240-P [facility] IN M.R.#: [id number] Admission: 02/10/18 Attend Phys: Juan Stack MD Discharge: Date of : 32 Report #: [id number] NECK: Supple, without lymphadenopathy or thyromegaly. CHEST: Breath sounds are fair. Few scattered crackles in the bases. No wheezes. CARDIOVASCULAR: Irregular rhythm. No obvious murmur or gallop. Pulses are 2+/4+ bilaterally. ABDOMEN: Soft, mildly distended, no mass was felt. Nontender. No rebound tenderness. GENITOURINARY: Deferred. RECTAL: Deferred. EXTREMITIES: There is no edema, cyanosis or clubbing. LABORATORY DATA: Portable chest x-ray, bibasilar infiltrates, greater in the left than the right, increased gastric distention, this appears to be new since admission. Electrolytes are normal, creatinine is 1.1. Liver function enzymes are normal. WBC 11,900, hemoglobin 11.8, platelets mildly elevated. Albumin 2.0. Arterial blood gas earlier revealed pH 7.37, pCO2 of 30, pO2 of 47 on room air. Followup arterial blood gas revealed pH 7.40, pCO2 of 32, pO2 of 61 on 100% FiO2 on BiPAP. IMPRESSION: 1. Acute hypoxic respiratory failure in this 87-year-old white male. Chest x-ray now shows bibasilar infiltrates. He has Clostridium difficile pseudomembranous colitis. The patient denies any recent nausea, vomiting. Etiology suspect aspiration, though the patient denies vomiting. Severe sepsis leading to leaky capillary syndrome is also considered. Aspiration pneumonia is also part of the differential. Pulmonary embolus is felt to be less likely given the radiographic appearance. Heart failure is possible, though had a fairly normal LV function, normal ejection fraction. 2. Severe sepsis with Clostridium difficile colitis, currently on multiple antibiotics. 3. Atrial fibrillation with rapid ventricular response, stable. 4. History of hypertension. 5. Coronary artery disease. 6. Seizure disorder. 7. Benign prostatic hypertrophy. 8. Cognitive impairment, may be related to toxic encephalopathy. RECOMMENDATION: We will continue noninvasive positive pressure ventilation, maintain saturation around 90%. If the patient is not able to maintain adequate saturation or if he deteriorates, he may need intubation. He is currently on multiple antibiotics for Clostridium difficile colitis. We will follow. We will obtain sputum for Gram stain, culture and sensitivity. If chest radiograph worsens, may need to consider worsening pneumonia. I do not think the patient has heart failure, we will try to keep euvolemic if possible. [address] [address] CONSULTATION Name: MILTON KELLEY Room #: 240-P [facility] IN M.R.#: [id number] Admission: 02/10/18 Attend Phys: Juan Stack MD Discharge: Date of : 32 Report #: [id number] Follow up serial chest x-ray. Bile decompression should also help with respiratory compromise. DVT and GI prophylaxis recommended. <ELECTRONICALLY SIGNED> By: Rik Foster MD 02/18/18 1608 1230 1601 Rik Foster MD /nt
--- NOTE | ~2018-02-10 | HC ---
[facility] [place] [address] CONSULTATION Name: MILTON KELLEY Room #: 363-P [facility] IN ..#: [id number] Admission: 02/10/18 Attend Phys: Juan Stack MD Discharge: Date of : 32 Report #: [id number] THIS REPORT FOR: //name// CC: Srinivasa Stack DATE OF SERVICE: 02/11/2018 CHIEF COMPLAINT: Pressure ulcer, left heel. HISTORY OF PRESENT ILLNESS: This is an 87-year-old white male patient with whom I am familiar from both recent hospitalization as well as the outpatient wound center. He previously has had a pressure ulcer develop on his left heel following previous hip surgery and developed nonhealing area on the left heel. He has undergone percutaneous revascularization and has had improvement. He was admitted for septic shock and leukocytosis. The patient is awake and alert and says he is oriented and he is feeling somewhat better at this time. He notes that he still has the heel ulcer, but believes that it has improved. PAST MEDICAL HISTORY: Positive for urinary tract infection, weakness, pain in the left hip, congestive heart failure, hypertension, atrial fibrillation and pressure ulcer in the left heel. ALLERGIES: PENICILLIN. MEDICATIONS: Include acetaminophen, aspirin, atenolol, atorvastatin, diltiazem, enoxaparin, gabapentin, hydrocodone, Keppra, metoprolol, Nitrostat, ondansetron, tamsulosin and zolpidem. FAMILY HISTORY: Noncontributory. SOCIAL HISTORY: Negative for current alcohol or tobacco use. He is . REVIEW OF SYSTEMS: CONSTITUTIONAL: The patient denies fever, chills or weight loss. NEUROLOGICAL: The patient denies focal weakness. ENT: The patient denies earache, nasal drainage or sore throat. CARDIOVASCULAR: The patient denies chest pain, palpitation or diaphoresis. PULMONARY: The patient denies cough or shortness of breath. GASTROINTESTINAL: The patient denies nausea, vomiting, diarrhea or abdominal pain. ORTHOPEDIC: The patient has ulceration on the left heel. Denies pain. Other systems in a 14-point review of systems are negative. PHYSICAL EXAMINATION: VITAL SIGNS: At this time include temperature 36.5, pulse 88, respiratory rate [address] [address] CONSULTATION Name: MILTON KELLEY Room #: 363-P [facility] IN ..#: [id number] Admission: 02/10/18 Attend Phys: Juan Stack MD Discharge: Date of : 32 Report #: [id number] and blood pressure 129/67. GENERAL: This is a chronically ill-appearing male patient who appears to be in minimal distress. HEENT: Head is normocephalic. Nose and throat clear. NECK: Supple. LUNGS: Clear. HEART: Irregular without murmur. ABDOMEN: Soft. Bowel sounds are present. EXTREMITIES: Demonstrate good perfusion with capillary refill. The ulceration on his left heel is a mix of granulation and fibrin and is certainly much improved from where it originally started. It is relatively superficial. There is no tunneling, undermining or evidence of infection. CLINICAL IMPRESSION: 1. Pressure ulceration stage 3 to the left heel. 2. Peripheral arterial disease, status post percutaneous intervention. RECOMMENDATIONS: At this point in time, we will continue with local care to the affected area. We may recommend Medihoney and a bordered foam dressing to the left heel. Prevalon boots for pressure prophylaxis. Recommend continuing all medications and nutritional support for aggressive wound healing. <ELECTRONICALLY SIGNED> By: Manav Mcmillan MD 02/12/18 0752 1736 0206 Manav Mcmillan MD /nt
--- NOTE | ~2018-02-10 | EKG ---
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 Professor: Hill HAYS : 1930 Requested By: Juan Stack Order Number: [id number] MD: Gabino Snell Measurements Intervals [place] Rate: 64 P: -6 [place]: 194 QRS: 14 QRSD: 104 T: 31 QT: 506 QTc: 522 Interpretive Statements Sinus rhythm Low voltage, precordial leads Prolonged QT interval Nonspecific T wave abnormality Compared to ECG 02/13/2018 07:08:58 Prolonged QT interval now present Electronically Signed On 02-18-2018 16:06:43 CDT by Gabino Snell [email or web address] <ELECTRONICALLY SIGNED> By: Gabino Snell MD, [facility] 02/18/18 1606 1512 1512 Gabino Snell MD, [facility] /EPI
[~2018-02-10 14:27] MED LIST changes: +DILTIAZEM 24HR120 M1 PO; +MELATONIN3 MG PO; +MIRALAX17 GM PO; +NITROGLYCERIN0.4 MG SUBLING; +TYLENOL325 MG PO; +UNICOMPLEX M TA1 TA1 PO
[2018-02-10 14:46] VITALS: BP 140/84
[2018-02-10 15:08] LABS: ABSOLUTE NEUTROPHILS 15.7 thou/uL (1.4-8.2); BASOPHILS 0.3 % (0.0-2.0); EOSINOPHILS 0.1 % (0.0-3.0); HEMATOCRIT 32.7 % (42.0-52.0); HEMOGLOBIN 10.8 gm/dL (14.0-18.0); LYMPHOCYTES 4.3 % (24.0-44.0); MCH 32.1 pg (26.0-34.0); MCV 97.3 fL (80.0-100.0); MONOCYTES 8.7 % (1.0-8.0); PLATELET COUNT 267 thou/uL (150-400); POLYS 86.6 % (36.0-66.0); RBC 3.36 mil/uL (4.50-6.00); RDW 14.4 % (10.5-14.5); WBC 18.1 thou/uL (4.0-11.0)
[2018-02-10 15:20] LABS: CALCIUM 9.1 mg/dL (8.5-10.1); CREATININE 1.5 mg/dL (0.7-1.3); POTASSIUM 3.6 mmol/L (3.5-5.1)
[2018-02-10 15:25] LABS: ALBUMIN 2.6 g/dL (3.4-5.0); DIRECT BILIRUBIN 0.2 mg/dL (<0.1-0.3); TOTAL BILIRUBIN 0.5 mg/dL (<0.1-1.0); TOTAL PROTEIN 6.9 g/dL (6.4-8.2)
[2018-02-10 17:27] LABS: URINE BILIRUBIN NEGATIVE (Negative); URINE BLOOD NEGATIVE (Negative); URINE CLARITY CLEAR; URINE COLOR YELLOW; URINE GLUCOSE-RANDOM* NEGATIVE (Negative); URINE KETONES NEGATIVE (Negative); URINE LEUKOCYTES NEGATIVE (Negative); URINE NITRITE NEGATIVE (Negative); URINE PROTEIN (DIPSTICK) TRACE (Negative); URINE SPECIFIC GRAVITY 1.025 (1.005-1.035); URINE UROBILINOGEN 0.2 E.U./dl (0.2-1.0)
[2018-02-10 17:36] VITALS: BP 105/68
[2018-02-10 18:51] VITALS: BP 99/62
[2018-02-10] MEDS ORDERED: UNICOMPLEX M TA1 TA1 PO (19:46)
[2018-02-10] MEDS ORDERED: APAP650 PO (19:46)
[2018-02-10] MEDS ORDERED: VENTOLIN HFA 1818 GM INH (19:47)
[2018-02-10] MEDS ORDERED: MELATONIN3 MG PO (19:47)
[2018-02-10] MEDS ORDERED: ATORVASTATIN CA40 MG PO (19:48)
[2018-02-10] MEDS ORDERED: FLOMAX0.4 MG PO (19:48)
[2018-02-10] MEDS ORDERED: ASPIR 8181 MG PO (19:49)
[2018-02-10] MEDS ORDERED: LOPRESSOR50 PO (19:49)
[2018-02-10] MEDS ORDERED: NITROGLYCERIN0.4 MG SUBLING (19:50)
[2018-02-10] MEDS ORDERED: PLAVIX 75 MG TA75 M1 PO (19:50)
[2018-02-10] MEDS ORDERED: CARDIZEM CD120 MG PO (19:51)
[2018-02-10 20:09] VITALS: BP 131/71
[2018-02-10 21:08] LABS: MAGNESIUM 1.7 mg/dL (1.8-2.4); TROPONIN-I < 0.04 ng/mL (<0.06)
[2018-02-11] VITALS (8 sets, daily range): BP systolic 108–148; BP diastolic 61–79
[2018-02-11 06:22] LABS: HEMATOCRIT 28.9 % (42.0-52.0); HEMOGLOBIN 9.6 gm/dL (14.0-18.0); MCH 32.3 pg (26.0-34.0); MCHC 33.3 g/dL (28.0-37.0); RBC 2.97 mil/uL (4.50-6.00); RDW 14.6 % (10.5-14.5)
[2018-02-11 06:35] LABS: CALCIUM 8.1 mg/dL (8.5-10.1); CREATININE 1.4 mg/dL (0.7-1.3); POTASSIUM 3.8 mmol/L (3.5-5.1)
[2018-02-11 11:18] LABS: MAGNESIUM 1.7 mg/dL (1.8-2.4)
[2018-02-11 17:10] LABS: CALCIUM 8.5 mg/dL (8.5-10.1); CREATININE 1.2 mg/dL (0.7-1.3)
[2018-02-12] VITALS (8 sets, daily range): BP systolic 108–138; BP diastolic 66–90
[2018-02-12 05:26] LABS: ABSOLUTE NEUTROPHILS 16.2 thou/uL (1.4-8.2); BASOPHILS 0.2 % (0.0-2.0); EOSINOPHILS 0.7 % (0.0-3.0); HEMATOCRIT 32.2 % (42.0-52.0); HEMOGLOBIN 10.5 gm/dL (14.0-18.0); LYMPHOCYTES 4.5 % (24.0-44.0); MCHC 32.5 g/dL (28.0-37.0); MCV 98.2 fL (80.0-100.0); MONOCYTES 4.6 % (1.0-8.0); PLATELET COUNT 248 thou/uL (150-400); RBC 3.28 mil/uL (4.50-6.00); RDW 14.2 % (10.5-14.5); WBC 17.9 thou/uL (4.0-11.0)
[2018-02-12 05:41] LABS: CALCIUM 8.1 mg/dL (8.5-10.1); CREATININE 1.2 mg/dL (0.7-1.3); MAGNESIUM 1.9 mg/dL (1.8-2.4); POTASSIUM 3.6 mmol/L (3.5-5.1)
[2018-02-13 04:30] VITALS: BP 119/69
[2018-02-13 06:22] LABS: ABSOLUTE NEUTROPHILS 16.5 thou/uL (1.4-8.2); BASOPHILS 0.1 % (0.0-2.0); EOSINOPHILS 0.3 % (0.0-3.0); HEMATOCRIT 32.3 % (42.0-52.0); HEMOGLOBIN 10.6 gm/dL (14.0-18.0); LYMPHOCYTES 5.6 % (24.0-44.0); MCH 31.8 pg (26.0-34.0); MCV 96.4 fL (80.0-100.0); MONOCYTES 3.7 % (1.0-8.0); PLATELET COUNT 285 thou/uL (150-400); POLYS 90.3 % (36.0-66.0); RBC 3.35 mil/uL (4.50-6.00); RDW 14.9 % (10.5-14.5); WBC 18.3 thou/uL (4.0-11.0)
[2018-02-13 06:32] LABS: ALBUMIN 1.8 g/dL (3.4-5.0); CREATININE 1.1 mg/dL (0.7-1.3); PHOSPHORUS 2.4 mg/dL (2.5-4.9); POTASSIUM 3.4 mmol/L (3.5-5.1); TOTAL BILIRUBIN 0.4 mg/dL (<0.1-1.0); TOTAL PROTEIN 5.2 g/dL (6.4-8.2)
[2018-02-13 07:02] LABS: BE(vivo) -6.7 mmol/L (-2 to +3); HCO3 16.8 mmol/L (22.0-26.0); PCO2 27.4 mmHg (35.0-45.0); PO2 76.6 mmHg (80.0-100.0); pH 7.405 (7.360-7.450); sO2 95.6 % (92.0-98.0)
[2018-02-13 07:32] VITALS: BP 138/65
[2018-02-13 11:45] VITALS: BP 129/66
[2018-02-13 15:35] VITALS: BP 133/65
[2018-02-13 19:31] VITALS: BP 142/79
[2018-02-14 04:27] VITALS: BP 115/69
[2018-02-14 05:56] LABS: ALBUMIN 1.7 g/dL (3.4-5.0); CALCIUM 7.7 mg/dL (8.5-10.1); PHOSPHORUS 2.5 mg/dL (2.5-4.9); POTASSIUM 3.4 mmol/L (3.5-5.1); TOTAL BILIRUBIN 0.2 mg/dL (<0.1-1.0); TOTAL PROTEIN 4.6 g/dL (6.4-8.2)
[2018-02-14 08:31] VITALS: BP 121/69
[2018-02-14 12:07] VITALS: BP 117/71
[2018-02-14 17:31] VITALS: BP 167/79
[2018-02-14 19:23] VITALS: BP 145/77
[2018-02-15 05:14] VITALS: BP 150/83
[2018-02-15 05:28] LABS: HEMATOCRIT 30.7 % (42.0-52.0); HEMOGLOBIN 10.5 gm/dL (14.0-18.0); MCH 32.3 pg (26.0-34.0); MCHC 34.1 g/dL (28.0-37.0); MCV 94.8 fL (80.0-100.0); RBC 3.24 mil/uL (4.50-6.00); RDW 14.4 % (10.5-14.5); WBC 7.8 thou/uL (4.0-11.0)
[2018-02-15 05:50] LABS: ALBUMIN 1.8 g/dL (3.4-5.0); CALCIUM 7.9 mg/dL (8.5-10.1); CREATININE 0.9 mg/dL (0.7-1.3); MAGNESIUM 1.9 mg/dL (1.8-2.4); PHOSPHORUS 2.7 mg/dL (2.5-4.9); POTASSIUM 3.3 mmol/L (3.5-5.1); TOTAL BILIRUBIN 0.3 mg/dL (<0.1-1.0); TOTAL PROTEIN 4.9 g/dL (6.4-8.2)
[2018-02-15 08:05] VITALS: BP 148/84
[2018-02-15 12:03] VITALS: BP 124/77
[2018-02-15 15:47] VITALS: BP 118/70
[2018-02-15 20:15] VITALS: BP 119/68
[2018-02-16 05:30] VITALS: BP 123/72
[2018-02-16 06:10] LABS: CALCIUM 7.8 mg/dL (8.5-10.1); MAGNESIUM 2.1 mg/dL (1.8-2.4); PHOSPHORUS 2.9 mg/dL (2.5-4.9); POTASSIUM 3.7 mmol/L (3.5-5.1)
[2018-02-16 07:50] VITALS: BP 126/69
[2018-02-16 12:10] VITALS: BP 111/68
[2018-02-16 17:16] VITALS: BP 124/71
[2018-02-16 20:24] VITALS: BP 135/70
[2018-02-17 04:50] VITALS: BP 132/68
[2018-02-17 05:42] LABS: ABSOLUTE NEUTROPHILS 3.4 thou/uL (1.4-8.2); BASOPHILS 0.6 % (0.0-2.0); EOSINOPHILS 5.8 % (0.0-3.0); HEMATOCRIT 27.7 % (42.0-52.0); HEMOGLOBIN 9.5 gm/dL (14.0-18.0); LYMPHOCYTES 23.7 % (24.0-44.0); MCHC 34.1 g/dL (28.0-37.0); MCV 96.7 fL (80.0-100.0); MONOCYTES 8.1 % (1.0-8.0); PLATELET COUNT 226 thou/uL (150-400); POLYS 61.8 % (36.0-66.0); RBC 2.86 mil/uL (4.50-6.00); RDW 14.4 % (10.5-14.5); WBC 5.5 thou/uL (4.0-11.0)
[2018-02-17 05:57] LABS: CALCIUM 7.8 mg/dL (8.5-10.1); PHOSPHORUS 3.5 mg/dL (2.5-4.9); POTASSIUM 3.8 mmol/L (3.5-5.1)
[2018-02-17 08:25] VITALS: BP 127/66
[2018-02-17 12:19] VITALS: BP 120/64
[2018-02-17 16:19] VITALS: BP 133/68
[2018-02-17 20:25] VITALS: BP 150/72
[2018-02-18] VITALS (50 sets, daily range): BP systolic 74–136; BP diastolic 35–75
[2018-02-18 00:32] LABS: HEMATOCRIT 35.6 % (42.0-52.0); MCHC 33.2 g/dL (28.0-37.0); MCV 96.4 fL (80.0-100.0); RBC 3.7 mil/uL (4.50-6.00); WBC 11.8 thou/uL (4.0-11.0)
[2018-02-18 00:33] LABS: HEMOGLOBIN 11.8 gm/dL (14.0-18.0)
[2018-02-18 00:39] LABS: ANION GAP 11 mmol/L (7-16); BUN 17 mg/dL (7-18); CALCIUM 8.1 mg/dL (8.5-10.1); CHLORIDE 110 mmol/L (98-107); CO2 20 mmol/L (21-32); CREATININE 1.1 mg/dL (0.7-1.3); GLUCOSE 228 mg/dL (74-106); POTASSIUM 3.9 mmol/L (3.5-5.1); SODIUM 141 mmol/L (136-145)
[2018-02-18 00:46] LABS: APTT 30.4 Seconds (24.5-32.8); INR 1.1; PROTIME 11.1 Seconds (9.3-11.4)
[2018-02-18 00:48] LABS: SGOT 23 U/L (15-37); SGPT 19 U/L (30-65); TOTAL BILIRUBIN 0.3 mg/dL (<0.1-1.0); TOTAL PROTEIN 5.6 g/dL (6.4-8.2); TROPONIN-I < 0.04 ng/mL (<0.06)
[2018-02-18 02:04] LABS: BE(vivo) -6.2 mmol/L (-2 to +3); HCO3 17.8 mmol/L (22.0-26.0); PCO2 30.9 mmHg (35.0-45.0); PO2 47.3 mmHg (80.0-100.0); pH 7.379 (7.360-7.450)
[2018-02-18 09:22] LABS: BE(vivo) -3.9 mmol/L (-2 to +3); PCO2 32.7 mmHg (35.0-45.0); PO2 61.2 mmHg (80.0-100.0); pH 7.405 (7.360-7.450); sO2 91.9 % (92.0-98.0)
[2018-02-18 14:39] LABS: BE(vivo) -4.9 mmol/L (-2 to +3); HCO3 19.4 mmol/L (22.0-26.0); PCO2 32.7 mmHg (35.0-45.0); PO2 137.7 mmHg (80.0-100.0); sO2 98.8 % (92.0-98.0)
[2018-02-19] VITALS (23 sets, daily range): BP systolic 83–104; BP diastolic 47–68
[2018-02-19 05:07] LABS: BE(vivo) -3.3 mmol/L (-2 to +3); HCO3 20.9 mmol/L (22.0-26.0); PCO2 34.5 mmHg (35.0-45.0); PO2 90.8 mmHg (80.0-100.0); pH 7.401 (7.360-7.450)
[2018-02-19 05:52] LABS: HEMATOCRIT 26.1 % (42.0-52.0); MCH 31.9 pg (26.0-34.0); MCV 96.6 fL (80.0-100.0); RBC 2.7 mil/uL (4.50-6.00); RDW 15.1 % (10.5-14.5); WBC 17.4 thou/uL (4.0-11.0)
[2018-02-19 06:03] LABS: CALCIUM 7.9 mg/dL (8.5-10.1); CREATININE 1.3 mg/dL (0.7-1.3); POTASSIUM 3.8 mmol/L (3.5-5.1)
[2018-02-19 06:11] LABS: HEMOGLOBIN 8.6 gm/dL (14.0-18.0)
[2018-02-20] VITALS (24 sets, daily range): BP systolic 83–107; BP diastolic 47–71
[2018-02-20 05:44] LABS: HEMATOCRIT 25.9 % (42.0-52.0); HEMOGLOBIN 8.5 gm/dL (14.0-18.0); MCH 31.8 pg (26.0-34.0); MCHC 32.7 g/dL (28.0-37.0); MCV 97.1 fL (80.0-100.0); RBC 2.67 mil/uL (4.50-6.00); RDW 15.4 % (10.5-14.5); WBC 14.2 thou/uL (4.0-11.0)
[2018-02-20 05:51] LABS: CALCIUM 7.9 mg/dL (8.5-10.1); CREATININE 1.1 mg/dL (0.7-1.3); POTASSIUM 3.7 mmol/L (3.5-5.1)
[2018-02-21] VITALS (23 sets, daily range): BP systolic 97–118; BP diastolic 50–70
[2018-02-21 05:34] LABS: ABSOLUTE NEUTROPHILS 7.8 thou/uL (1.4-8.2); BASOPHILS 0.2 % (0.0-2.0); EOSINOPHILS 1.5 % (0.0-3.0); HEMATOCRIT 24.7 % (42.0-52.0); HEMOGLOBIN 8.3 gm/dL (14.0-18.0); LYMPHOCYTES 7.2 % (24.0-44.0); MCH 32.7 pg (26.0-34.0); MCHC 33.6 g/dL (28.0-37.0); MCV 97.3 fL (80.0-100.0); MONOCYTES 5.1 % (1.0-8.0); PLATELET COUNT 202 thou/uL (150-400); RBC 2.54 mil/uL (4.50-6.00); RDW 15.3 % (10.5-14.5); WBC 9.1 thou/uL (4.0-11.0)
[2018-02-21 05:42] LABS: CALCIUM 7.7 mg/dL (8.5-10.1); CREATININE 1.2 mg/dL (0.7-1.3); POTASSIUM 3.6 mmol/L (3.5-5.1)
[2018-02-22] VITALS: BP 119/61
[2018-02-22 03:20] VITALS: BP 121/69
[2018-02-22 04:15] LABS: ABSOLUTE NEUTROPHILS 5.4 thou/uL (1.4-8.2); BASOPHILS 0.5 % (0.0-2.0); EOSINOPHILS 2.5 % (0.0-3.0); HEMATOCRIT 25.5 % (42.0-52.0); HEMOGLOBIN 8.7 gm/dL (14.0-18.0); LYMPHOCYTES 10.1 % (24.0-44.0); MCH 32.8 pg (26.0-34.0); MCV 96.6 fL (80.0-100.0); PLATELET COUNT 191 thou/uL (150-400); POLYS 79.9 % (36.0-66.0); RBC 2.64 mil/uL (4.50-6.00); RDW 15.1 % (10.5-14.5); WBC 6.7 thou/uL (4.0-11.0)
[2018-02-22 08:34] VITALS: BP 129/63
[2018-02-22 12:53] LABS: CALCIUM 7.9 mg/dL (8.5-10.1); CREATININE 1.1 mg/dL (0.7-1.3); POTASSIUM 3.7 mmol/L (3.5-5.1)
[2018-02-22 17:26] VITALS: BP 136/59
[2018-02-22 19:37] VITALS: BP 122/68
[2018-02-23 04:43] VITALS: BP 121/64
[2018-02-23 07:50] VITALS: BP 131/72
[2018-02-23 11:33] VITALS: BP 134/75
[2018-02-23 15:58] VITALS: BP 131/65
[2018-02-23 20:24] VITALS: BP 134/76
[2018-02-24 04:10] LABS: ABSOLUTE NEUTROPHILS 5.2 thou/uL (1.4-8.2); BASOPHILS 0.8 % (0.0-2.0); EOSINOPHILS 1.9 % (0.0-3.0); HEMATOCRIT 27.1 % (42.0-52.0); MCH 31.9 pg (26.0-34.0); MCHC 33.4 g/dL (28.0-37.0); MCV 95.5 fL (80.0-100.0); MONOCYTES 8.9 % (1.0-8.0); PLATELET COUNT 201 thou/uL (150-400); POLYS 79.4 % (36.0-66.0); RBC 2.83 mil/uL (4.50-6.00); RDW 14.9 % (10.5-14.5); WBC 6.6 thou/uL (4.0-11.0)
[2018-02-24 04:22] LABS: CALCIUM 7.9 mg/dL (8.5-10.1); POTASSIUM 3.6 mmol/L (3.5-5.1)
[2018-02-24 04:42] VITALS: BP 140/78
[2018-02-24 08:35] VITALS: BP 146/77
[2018-02-24 11:56] VITALS: BP 140/73
[2018-02-24 16:03] VITALS: BP 139/70
[2018-02-24 20:40] VITALS: BP 116/79
[2018-02-25 06:10] LABS: HEMATOCRIT 27.4 % (42.0-52.0); HEMOGLOBIN 9.3 gm/dL (14.0-18.0); MCH 32.2 pg (26.0-34.0); MCHC 33.8 g/dL (28.0-37.0); MCV 95.1 fL (80.0-100.0); RBC 2.88 mil/uL (4.50-6.00); RDW 14.9 % (10.5-14.5); WBC 6.1 thou/uL (4.0-11.0)
[2018-02-25 06:27] LABS: CALCIUM 7.8 mg/dL (8.5-10.1); POTASSIUM 3.1 mmol/L (3.5-5.1)
[2018-02-25 08:00] VITALS: BP 127/83
[2018-02-25 11:34] VITALS: BP 143/81
[2018-02-25 17:41] VITALS: BP 131/74
[2018-02-25 18:55] VITALS: BP 126/70
[2018-02-25 23:40] VITALS: BP 112/57
[2018-02-26 04:20] VITALS: BP 120/63
[2018-02-26 06:11] LABS: ABSOLUTE NEUTROPHILS 3.3 thou/uL (1.4-8.2); BASOPHILS 0.6 % (0.0-2.0); EOSINOPHILS 3.8 % (0.0-3.0); HEMATOCRIT 24.4 % (42.0-52.0); HEMOGLOBIN 8.1 gm/dL (14.0-18.0); LYMPHOCYTES 15.8 % (24.0-44.0); MCH 31.9 pg (26.0-34.0); MCHC 33.2 g/dL (28.0-37.0); MCV 96.1 fL (80.0-100.0); MONOCYTES 9.5 % (1.0-8.0); PLATELET COUNT 208 thou/uL (150-400); POLYS 70.3 % (36.0-66.0); RBC 2.54 mil/uL (4.50-6.00); RDW 15.8 % (10.5-14.5); WBC 4.7 thou/uL (4.0-11.0)
[2018-02-26 06:25] LABS: CALCIUM 7.6 mg/dL (8.5-10.1); POTASSIUM 3.5 mmol/L (3.5-5.1)
[2018-02-26 07:23] VITALS: BP 112/61
[2018-02-26 11:32] VITALS: BP 117/63
[2018-02-26 16:30] VITALS: BP 156/80
[2018-02-26 19:05] VITALS: BP 136/68
[2018-02-27 05:20] VITALS: BP 131/72
[2018-02-27 05:30] LABS: ABSOLUTE NEUTROPHILS 3.4 thou/uL (1.4-8.2); BASOPHILS 1.2 % (0.0-2.0); EOSINOPHILS 5.1 % (0.0-3.0); HEMOGLOBIN 8.8 gm/dL (14.0-18.0); LYMPHOCYTES 14.3 % (24.0-44.0); MCH 32.7 pg (26.0-34.0); MCHC 33.8 g/dL (28.0-37.0); MCV 96.8 fL (80.0-100.0); MONOCYTES 6.4 % (1.0-8.0); PLATELET COUNT 219 thou/uL (150-400); RBC 2.69 mil/uL (4.50-6.00); RDW 15.7 % (10.5-14.5); WBC 4.7 thou/uL (4.0-11.0)
[2018-02-27 05:43] LABS: ALBUMIN 1.4 g/dL (3.4-5.0); CALCIUM 7.6 mg/dL (8.5-10.1); POTASSIUM 3.6 mmol/L (3.5-5.1); TOTAL BILIRUBIN 0.2 mg/dL (<0.1-1.0); TOTAL PROTEIN 5.2 g/dL (6.4-8.2)
[2018-02-27 07:40] VITALS: BP 148/79
[2018-02-27 12:00] VITALS: BP 128/64
[2018-02-27 12:25] VITALS: BP 145/93
[2018-02-27 16:00] VITALS: BP 150/88
[2018-02-27 19:15] VITALS: BP 141/72
[2018-02-28 04:40] VITALS: BP 122/57
[2018-02-28 07:10] VITALS: BP 135/72
[2018-02-28] MEDS ORDERED: PACERONE 200 M200 M1 PO (11:58)
[2018-02-28] MEDS ORDERED: VANCOMYCIN HCL10 GM PO (11:58)
[2018-02-28 13:21] VITALS: BP 126/63
[2018-02-28 15:25] VITALS: BP 125/68
== END 2018-02-28 16:45 | DRG 871 ==
LOC: ER 14:27 → EROBS 16:35 → 3W 16:35 → ICU 02-18 11:24 → 3W 02-22 00:20
PROVIDERS: Emergency Medicine; Hospitalist; Internal Medicine Pulmonary Disease; Nurse Practitioner; Nurse Practitioner Acute Care; Surgery
DX: A41.9 Sepsis, unspecified organism (principal); L89.623 Pressure ulcer of left heel, stage 3; E43 Unspecified severe protein-calorie malnutrition; R65.21 Severe sepsis with septic shock; J96.01 Acute respiratory failure with hypoxia; J69.0 Pneumonitis due to inhalation of food and vomit; A04.72 Enterocolitis due to Clostridium difficile, not specified as recurrent; N17.9 Acute kidney failure, unspecified; E87.3 Alkalosis; K56.7 Ileus, unspecified; I50.9 Heart failure, unspecified; I25.10 Atherosclerotic heart disease of native coronary artery without angina pectoris; G40.909 Epilepsy, unspecified, not intractable, without status epilepticus; N40.0 Benign prostatic hyperplasia without lower urinary tract symptoms; I95.9 Hypotension, unspecified; E78.5 Hyperlipidemia, unspecified; E78.00 Pure hypercholesterolemia, unspecified; I11.0 Hypertensive heart disease with heart failure; E83.42 Hypomagnesemia; G47.00 Insomnia, unspecified; E86.0 Dehydration; Z96.642 Presence of left artificial hip joint; E11.51 Type 2 diabetes mellitus with diabetic peripheral angiopathy without gangrene; M19.012 Primary osteoarthritis, left shoulder; Z66 Do not resuscitate; R13.10 Dysphagia, unspecified; E87.6 Hypokalemia; J44.9 Chronic obstructive pulmonary disease, unspecified; D64.9 Anemia, unspecified; I48.0 Paroxysmal atrial fibrillation; K29.80 Duodenitis without bleeding; Z88.0 Allergy status to penicillin; Z87.891 Personal history of nicotine dependence; Z90.49 Acquired absence of other specified parts of digestive tract; Z95.5 Presence of coronary angioplasty implant and graft; Z83.3 Family history of diabetes mellitus; Z79.82 Long term (current) use of aspirin; Z79.899 Other long term (current) drug therapy
CPT/HCPCS: 10078; 10779; 10879; 27000

== ENCOUNTER → 2018-03-26 | Outpatient (CLI) | payer OTHER ==
[~2018-03-26] MED LIST changes: +APAP650 PO; +CARDIZEM CD120 MG PO; +PACERONE 200 M200 M1 PO; +VANCOMYCIN HCL10 GM PO; +VENTOLIN HFA 1818 GM INH
== END ==
LOC: HYPER 06:43
DX: E11.621 Type 2 diabetes mellitus with foot ulcer (principal); I70.245 Atherosclerosis of native arteries of left leg with ulceration of other part of foot; L97.521 Non-pressure chronic ulcer of other part of left foot limited to breakdown of skin; L89.623 Pressure ulcer of left heel, stage 3; L97.421 Non-pressure chronic ulcer of left heel and midfoot limited to breakdown of skin; L89.611 Pressure ulcer of right heel, stage 1; L97.411 Non-pressure chronic ulcer of right heel and midfoot limited to breakdown of skin; E11.51 Type 2 diabetes mellitus with diabetic peripheral angiopathy without gangrene; I10 Essential (primary) hypertension; E46 Unspecified protein-calorie malnutrition; E78.00 Pure hypercholesterolemia, unspecified; I25.10 Atherosclerotic heart disease of native coronary artery without angina pectoris; K21.9 Gastro-esophageal reflux disease without esophagitis; J43.9 Emphysema, unspecified; Z96.651 Presence of right artificial knee joint; Z98.42 Cataract extraction status, left eye; Z98.41 Cataract extraction status, right eye; Z79.84 Long term (current) use of oral hypoglycemic drugs; Z85.828 Personal history of other malignant neoplasm of skin; Z96.642 Presence of left artificial hip joint; Z87.891 Personal history of nicotine dependence

== ENCOUNTER 2018-04-09 14:31 | Inpatient (IN) | payer OTHER ==
[~2018-04-09] VITALS: Ht 195.6 cm; Wt 92.6 kg
--- NOTE | ~2018-04-09 | EKG ---
[address] [place] [address] ELECTROCARDIOGRAM REPORT Name: MILTON KELLEY Room #: 246-P ADM IN M.R.#: [id number] Admission: 04/09/18 Attend Phys: Meet Moore MD Discharge: Date of : 32 Report #: [id number] THIS REPORT FOR: //name// [facility] ED Test Date: 2018-04-09 Test Time: 15:24:10 Pat Name: MILTON KELLEY Department: Room: 246 Gender: M Telephone Solicitor Supervisor: KF : 1930 Requested By: Barry Frankel Order Number: [id number] MD: Gabino Snell Measurements Intervals [place] Rate: 90 P: -25 [place]: 183 QRS: -17 QRSD: 95 T: 40 QT: 371 QTc: 454 Interpretive Statements Sinus rhythm Borderline T wave abnormalities Compared to ECG 02/18/2018 15:12:06 Prolonged QT interval no longer present T-wave abnormality still present Electronically Signed On 04-10-2018 16:44:51 CDT by Gabino Snell [email or web address] <ELECTRONICALLY SIGNED> By: Gabino Snell MD, [facility] 04/10/18 1644 1524 1524 Gabino Snell MD, [facility] /EPI
--- NOTE | ~2018-04-09 | EKG ---
[address] [employer] [place] [address] ELECTROCARDIOGRAM REPORT Name: MILTON KELLEY Room #: 350-P ADM IN M.R.#: [id number] Admission: 04/09/18 Attend Phys: Meet Moore MD Discharge: Date of : 32 Report #: [id number] THIS REPORT FOR: //name// [facility] Test Date: 2018-04-14 Test Time: 06:53:02 Pat Name: MILTON KELLEY Department: Room: 350 P Gender: M Engineering Systems Analyst: IRINA : 1930 Requested By: Gabino Snell Order Number: [id number] MD: Gabino Snell Measurements Intervals [place] Rate: 75 P: -6 [place]: 202 QRS: -12 QRSD: 104 T: QT: 397 QTc: 444 Interpretive Statements Sinus rhythm Low voltage, precordial leads Borderline T wave abnormalities Baseline wander in lead(s) II,III,aVF Compared to ECG 04/13/2018 07:09:23 T-wave abnormality now present Poor R-wave progression no longer present Electronically Signed On 04-14-2018 9:13:44 CDT by Gabino Snell [email or web address] <ELECTRONICALLY SIGNED> By: Gabino Snell MD, [facility] 04/14/18912 0653 Gabino Snell MD, [facility] /EPI
--- NOTE | ~2018-04-09 | EKG ---
[address] [place] [address] ELECTROCARDIOGRAM REPORT Name: MILTON KELLEY Room #: 350-P ADM IN M.R.#: [id number] Admission: 04/09/18 Attend Phys: Meet Moore MD Discharge: Date of : 32 Report #: [id number] THIS REPORT FOR: //name// [facility] Test Date: 2018-04-13 Test Time: 07:09:23 Pat Name: MILTON KELLEY Department: Room: 350 P Gender: M Forging Operator: DANILO : 1930 Requested By: Gabino Snell Order Number: [id number] MD: Gabino Snell Measurements Intervals [place] Rate: 72 P: -13 [place]: 191 QRS: -2 QRSD: 107 T: 58 QT: 418 QTc: 458 Interpretive Statements Sinus rhythm Low voltage, extremity leads Poor R wave progression Compared to ECG 04/11/2018 06:52:36 No significant change was found Electronically Signed On 04-13-2018 15:34:48 CDT by Gabino Snell [email or web address] <ELECTRONICALLY SIGNED> By: Gabino Snell MD, [facility] 04/13/18 1534 0709 0709 Gabino Snell MD, [facility] /EPI
--- NOTE | ~2018-04-09 | HC ---
[facility] [place] [address] CONSULTATION Name: MILTON KELLEY Room #: 350-P [facility] IN ..#: [id number] Admission: 04/09/18 Attend Phys: Meet Moore MD Discharge: Date of : 32 Report #: [id number] THIS REPORT FOR: //name// CC: Meet Martinez HISTORY OF PRESENT ILLNESS: The patient is an 87-year-old gentleman with a history of prior stenting of the marginal branch and mid LAD in 2012. He has a history of remote circumflex and right coronary stenting. His history includes dyslipidemia, COPD, hypertension and elective hip surgery earlier in the year. Preoperatively, he had a normal pharmacologic stress study and normal ejection fraction. His post-procedural course has been complicated by an ischemic ulcer with peripheral intervention. He has had paroxysmal atrial fibrillation and prolonged danielle course with C. difficile colitis. He has had progressive weakness, anemia and diarrhea. He has been anticoagulated for his paroxysmal atrial dysrhythmia. He now presents with weakness, loose stools and anorexia. In this setting, he was found to be volume depleted and in atrial fibrillation with a rapid ventricular response. Denies fevers, chills or night sweats. No history of heart failure symptoms. No history of palpitations, near syncope or syncope. ALLERGIES: He is allergic to PENICILLIN. MEDICATIONS: Include albuterol, amiodarone 200 mg daily, atorvastatin 40 mg daily, Plavix 75 mg daily, diltiazem CD 120 mg daily, gabapentin 300 mg 3 times a day, Keppra 500 mg twice daily, tramadol, Flomax 0.4 mg daily and vancomycin. 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 difficile colitis, knee arthroscopy, shoulder replacement. SOCIAL HISTORY: He is a former smoker, quit over 50 years ago. FAMILY HISTORY: Notable for cancer, coronary artery disease and diabetes. REVIEW OF SYSTEMS: All systems negative except as that noted above. PHYSICAL EXAMINATION: GENERAL: Reveals an elderly, frail gentleman who is alert and in no distress. VITAL SIGNS: Blood pressure is 108/63, heart rate of 130 and irregular. He is afebrile, 6 feet 5 inches tall, 192 pounds. HEENT: There are neither xanthelasma, subcutaneous xanthomata, oral mucosal or digital cyanosis or kyphoscoliosis present. CHEST: Clear to auscultation and percussion. CARDIAC: An irregularly irregular rhythm with normal S1, S2. ABDOMEN: Soft with mild lower abdominal tenderness. [facility] [address] [place] [address] CONSULTATION Name: MILTON KELLEY Room #: 350-P ADM IN M.R.#: [id number] Admission: 04/09/18 Attend Phys: Meet Moore MD Discharge: Date of : 32 Report #: [id number] EXTREMITIES: Without cyanosis, clubbing or edema. Radial pulses are 2+. NEUROLOGIC: He is alert with a nonfocal exam. LABORATORY DATA: Sodium is 145, potassium 3.6, creatinine 1.5. Troponin of 0. INR 4.8. White count 11.2, hemoglobin 9, hematocrit 29, platelet count 163. KUB demonstrates nonspecific bowel gas pattern. IMPRESSION: 1. Paroxysmal atrial fibrillation, now with a rapid ventricular response. 2. Coronary artery disease; normal ejection fraction with recent normal stress study. 3. History of Clostridium difficile colitis. 4. Diabetes. 5. Peripheral vascular disease. 6. Anemia. 7. Acute kidney injury. 8. Thoracic aortic aneurysm, 4.2 cm. 9. Hypercoagulable. RECOMMENDATIONS: 1. Use of IV amiodarone until hemodynamics improve, then migrate to oral. 2. Continued use of low dose diltiazem. Thank you for asking me to participate in the patient's care. <ELECTRONICALLY SIGNED> By: Gabino Snell MD, [facility] 04/16/18 0814 0748 1324 Gabino Snell MD, [facility] /nt
--- NOTE | ~2018-04-09 | HC ---
[facility] [place] [address] CONSULTATION Name: MILTON KELLEY Room #: 246-P [facility] IN .R.#: [id number] Admission: 04/09/18 Attend Phys: Meet Moore MD Discharge: Date of : 32 Report #: [id number] THIS REPORT FOR: //name// CC: Meet Martinez DATE OF SERVICE: 04/10/2018 INFECTIOUS DISEASES CONSULTATION REASON FOR CONSULTATION: Followup evaluation regarding C. difficile colitis and now, hypotension, possible sepsis. HISTORY OF PRESENT ILLNESS: The patient is an 87-year-old who was treated in January for C. difficile colitis following left total hip arthroplasty. Symptoms all began after his left hip surgery there. He developed a pressure ulcer to his left heel. He was then diagnosed first week of January with C. difficile colitis. His left total hip arthroplasty was performed in October. He has never regained his strength since that time. He has had issues with atrial fibrillation in addition to the above. He returns now after completing a prolonged course of antibiotic therapy including vancomycin for his C. difficile colitis. He finished his course of vancomycin approximately 1 week ago. Yesterday, he has noted increased diarrhea, which was liquid profuse. No reported abdominal pain. Generalized weakness. He is anticoagulated, and his INR was noted to be 8. Continues to have his chronic pain including his back, shoulders and legs. No fever, chills or sweats. No cough or sputum production. After hospitalization yesterday, he developed atrial fibrillation with rapid ventricular response and hypotension early this morning, was brought down to Intensive Care Unit where a bolus of fluid and rate control was established. He now feels better. Still very weak. No chest pain. No nausea or vomiting. Stools have been loose, yet none recorded on the hospital record yet. He had reasonable urine output. No change in his left heel decubitus. No abdominal pain. Has not eaten yet this morning. No vomiting. REVIEW OF SYSTEMS: A 10-point review of systems is negative other than what is described above. ALLERGIES: PENICILLIN. MEDICATIONS: As noted on his OCT, which were reviewed, now on vancomycin 125 mg p.o. q.i.d. PAST MEDICAL HISTORY: Atrial fibrillation, hip surgery, aspiration pneumonia, left heel decubitus, C. difficile colitis. FAMILY HISTORY: Noncontributory. [facility] [address] [place] [address] CONSULTATION Name: MILTON KELLEY Room #: 246-P [facility] IN M.R.#: [id number] Admission: 04/09/18 Attend Phys: Meet Moore MD Discharge: Date of : 32 Report #: [id number] SOCIAL HISTORY: Past smoker, no significant alcohol intake. PHYSICAL EXAMINATION: VITAL SIGNS: Afebrile, blood pressure 98/40, heart rate 120 earlier this morning. On room air, his oxygen saturation was 95%. GENERAL: He is alert and cooperative. Generalized weakness. Able to follow commands and give a reasonable history. HEENT: Eyes without scleral icterus or conjunctivitis. Mouth without lesion or mucositis. NECK: Supple, no thyromegaly or mass. No JVD. No peripheral adenopathy palpable. LUNGS: Few crackles heard in the bases bilaterally. No consolidation or rub. HEART: Irregular without appreciable murmur, gallop or rub. ABDOMEN: Soft, nontender, no hepatosplenomegaly or mass appreciated. RECTAL: Not performed. EXTERNAL GENITALIA: Unremarkable. EXTREMITIES: Left hip incision unremarkable. Left heel wound was clean with no tunneling or surrounding erythema or fluctuance. Pulses were adequate in the foot. Normal sensation in his feet. Cranial nerves intact. Strength equal throughout. LABORATORY STUDIES: INR 4.8, hemoglobin 10.2, WBC 14.7, platelet count 200,000. Sodium 142, potassium 3.9, bicarbonate 21, creatinine 1.5, lactate 1.3. Urinalysis unremarkable. IMPRESSION: An 87-year-old with recurrent diarrhea after completing his course of vancomycin. I am suspicious of relapse of the Clostridium difficile colitis. This is associated with leukocytosis, acute kidney injury along with atrial fibrillation with rapid ventricular response and hypotension. The patient's condition is a significant concern, now in the Intensive Care Unit on IV fluids. No vasopressors yet necessary. Rate is now better controlled. We will need to monitor closely his urinary output. He will need fluid resuscitation and rate control. We will obtain stool samples for Clostridium difficile by PCR. Place back on full dose oral vancomycin. Serial laboratory studies. We will obtain x-ray of the abdomen and chest. I have discussed with nursing staff at the bedside. We will carry out the current plan and reassess over the next 24 hours. <ELECTRONICALLY SIGNED> By: Ariel Carver MD 04/11/18 1024 [id number] 2317 Ariel Carver MD /nt
--- NOTE | ~2018-04-09 | EKG ---
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 : 1930 Requested By: Gabino Snell Order Number: [id number] MD: Gabino Snell Measurements Intervals [place] Rate: 67 P: -13 [place]: 192 QRS: -15 QRSD: 106 T: 45 QT: 445 QTc: 470 Interpretive Statements Sinus rhythm Borderline T abnormalities Compared to ECG 04/11/2018 06:52:36 Sinus rhythm has replaced atrial fibrillation Electronically Signed On 04-13-2018 15:27:54 CDT by Gabino Snell [email or web address] <ELECTRONICALLY SIGNED> By: Gabino Snell MD, [facility] 04/13/18 1527 6 6 Gabino Snell MD, [facility] /EPI
--- NOTE | ~2018-04-09 | EKG ---
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 Rescuer: GR : 1930 Requested By: Meet Moore Order Number: [id number] MD: Gabino Snell Measurements Intervals [place] Rate: 154 P: 0 [place]: QRS: -16 QRSD: 70 T: QT: 343 QTc: 549 Interpretive Statements Atrial fibrillation with a rapid ventricular response Repolarization abnormality, prob rate related Compared to ECG 04/09/2018 15:24:10 atrial fibrillation has replaced sinus rhythm Nonspecific ST segment abnormality is new Electronically Signed On 04-11-2018 8:47:53 CDT by Gabino Snell [email or web address] <ELECTRONICALLY SIGNED> By: Gabino Snell MD, [facility] 04/11/18 0847 0652 0652 Gabino Snell MD, [facility] /EPI
--- NOTE | ~2018-04-09 | EKG ---
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 : 1930 Requested By: Gabino Snell Order Number: [id number] MD: Gabino Snell Measurements Intervals [place] Rate: 74 P: -14 [place]: 204 QRS: -18 QRSD: 101 T: 49 QT: 413 QTc: 459 Interpretive Statements Sinus rhythm Borderline left axis deviation Low voltage, precordial leads Compared to ECG 04/14/2018 06:53:02 no significant change was found Electronically Signed On 04-15-2018 8:40:25 CDT by Gabino Snell [email or web address] <ELECTRONICALLY SIGNED> By: Gabino Snell MD, [facility] 04/15/18 0840 1 1 Gabino Snell MD, [facility] /EPI
[2018-04-09 14:33] VITALS: BP 107/53
[2018-04-09 15:29] LABS: ABSOLUTE NEUTROPHILS 16.9 thou/uL (1.4-8.2); BASOPHILS 0.3 % (0.0-2.0); HEMATOCRIT 33.2 % (42.0-52.0); HEMOGLOBIN 10.8 gm/dL (14.0-18.0); LYMPHOCYTES 3.2 % (24.0-44.0); MCH 32.6 pg (26.0-34.0); MCHC 32.5 g/dL (28.0-37.0); MCV 100.2 fL (80.0-100.0); MONOCYTES 8.2 % (1.0-8.0); PLATELET COUNT 215 thou/uL (150-400); POLYS 88.3 % (36.0-66.0); RBC 3.31 mil/uL (4.50-6.00); RDW 16.8 % (10.5-14.5); WBC 19.1 thou/uL (4.0-11.0)
[2018-04-09 15:40] LABS: ANION GAP 9 mmol/L (7-16); BUN 36 mg/dL (7-18); CALCIUM 9.4 mg/dL (8.5-10.1); CHLORIDE 108 mmol/L (98-107); CO2 23 mmol/L (21-32); GLUCOSE 160 mg/dL (74-106); POTASSIUM 4.5 mmol/L (3.5-5.1); SODIUM 140 mmol/L (136-145)
[2018-04-09 15:44] LABS: ALBUMIN 2.9 g/dL (3.4-5.0); DIRECT BILIRUBIN 0.2 mg/dL (<0.1-0.3); SGOT 14 U/L (15-37); SGPT 28 U/L (30-65); TOTAL BILIRUBIN 0.6 mg/dL (<0.1-1.0); TOTAL PROTEIN 7.1 g/dL (6.4-8.2); TROPONIN-I <0.06 ng/mL (<0.06)
[2018-04-09 16:15] LABS: PROTIME 56.3 Seconds (9.3-11.4)
[2018-04-09 17:17] LABS: URINE BILIRUBIN NEGATIVE (Negative); URINE BLOOD NEGATIVE (Negative); URINE CLARITY CLEAR; URINE COLOR YELLOW; URINE GLUCOSE-RANDOM* NEGATIVE (Negative); URINE KETONES NEGATIVE (Negative); URINE LEUKOCYTES-REFLEX NEGATIVE (Negative); URINE NITRITE-REFLEX NEGATIVE (Negative); URINE PROTEIN (DIPSTICK) TRACE (Negative); URINE SPECIFIC GRAVITY 1.025 (1.005-1.035); URINE UROBILINOGEN 0.2 E.U./dl (0.2-1.0)
[2018-04-09 18:30] VITALS: BP 121/46
[2018-04-09 18:44] VITALS: BP 113/53
[2018-04-09 19:30] VITALS: BP 122/82
[2018-04-10] VITALS (22 sets, daily range): BP systolic 82–115; BP diastolic 45–82
[2018-04-10 05:41] LABS: CALCIUM 8.7 mg/dL (8.5-10.1); CREATININE 1.5 mg/dL (0.7-1.3); POTASSIUM 3.9 mmol/L (3.5-5.1)
[2018-04-10 05:52] LABS: HEMATOCRIT 30.6 % (42.0-52.0); HEMOGLOBIN 10.2 gm/dL (14.0-18.0); MCH 32.8 pg (26.0-34.0); MCHC 33.4 g/dL (28.0-37.0); MCV 98.3 fL (80.0-100.0); RBC 3.11 mil/uL (4.50-6.00); RDW 16.4 % (10.5-14.5); WBC 14.7 thou/uL (4.0-11.0)
[2018-04-10 08:17] LABS: INR 4.8
[2018-04-11] VITALS (23 sets, daily range): BP systolic 88–125; BP diastolic 46–83
[2018-04-11 06:39] LABS: ABSOLUTE NEUTROPHILS 8.8 thou/uL (1.4-8.2); BASOPHILS 0.3 % (0.0-2.0); EOSINOPHILS 2.3 % (0.0-3.0); HEMATOCRIT 29.4 % (42.0-52.0); HEMOGLOBIN 9.7 gm/dL (14.0-18.0); LYMPHOCYTES 6.8 % (24.0-44.0); MCH 32.6 pg (26.0-34.0); MCHC 32.9 g/dL (28.0-37.0); MCV 99.1 fL (80.0-100.0); MONOCYTES 11.3 % (1.0-8.0); PLATELET COUNT 163 thou/uL (150-400); POLYS 79.3 % (36.0-66.0); RBC 2.96 mil/uL (4.50-6.00); RDW 16.4 % (10.5-14.5); WBC 11.2 thou/uL (4.0-11.0)
[2018-04-11 06:46] LABS: CALCIUM 8.4 mg/dL (8.5-10.1); CREATININE 1.5 mg/dL (0.7-1.3); POTASSIUM 3.6 mmol/L (3.5-5.1)
[2018-04-12] VITALS (16 sets, daily range): BP systolic 89–128; BP diastolic 43–72
[2018-04-12 05:55] LABS: ABSOLUTE NEUTROPHILS 9.3 thou/uL (1.4-8.2); BASOPHILS 0.3 % (0.0-2.0); EOSINOPHILS 2.7 % (0.0-3.0); HEMATOCRIT 27.5 % (42.0-52.0); HEMOGLOBIN 9.3 gm/dL (14.0-18.0); LYMPHOCYTES 7.4 % (24.0-44.0); MCH 33.2 pg (26.0-34.0); MCHC 33.6 g/dL (28.0-37.0); MCV 98.6 fL (80.0-100.0); MONOCYTES 8.8 % (1.0-8.0); PLATELET COUNT 177 thou/uL (150-400); POLYS 80.8 % (36.0-66.0); RBC 2.79 mil/uL (4.50-6.00); RDW 15.9 % (10.5-14.5); WBC 11.5 thou/uL (4.0-11.0)
[2018-04-12 06:22] LABS: CALCIUM 7.9 mg/dL (8.5-10.1); CREATININE 1.4 mg/dL (0.7-1.3)
[2018-04-13 03:37] VITALS: BP 112/56
[2018-04-13 05:33] LABS: CALCIUM 7.9 mg/dL (8.5-10.1); CREATININE 1.2 mg/dL (0.7-1.3)
[2018-04-13 05:39] LABS: POTASSIUM 2.8 mmol/L (3.5-5.1)
[2018-04-13 07:28] VITALS: BP 123/63
[2018-04-13 11:24] VITALS: BP 92/54
[2018-04-13 16:29] VITALS: BP 114/58
[2018-04-13 19:51] VITALS: BP 101/62
[2018-04-14 05:46] VITALS: BP 128/71
[2018-04-14 08:22] VITALS: BP 133/68
[2018-04-14 11:03] VITALS: BP 130/66
[2018-04-14 16:00] VITALS: BP 130/66
[2018-04-14 20:37] VITALS: BP 150/75
[2018-04-15 04:51] LABS: PROTIME 16.6 Seconds (9.3-11.4)
[2018-04-15 04:52] LABS: INR 1.6
[2018-04-15 04:58] VITALS: BP 132/63
[2018-04-15 05:06] LABS: POTASSIUM 4.1 mmol/L (3.5-5.1)
[2018-04-15 07:42] VITALS: BP 124/59
[2018-04-15 11:50] VITALS: BP 121/58
[2018-04-15 15:02] VITALS: BP 106/54
[2018-04-15 19:40] VITALS: BP 122/64
[2018-04-16 03:15] VITALS: BP 139/71
[2018-04-16 08:08] VITALS: BP 150/73
[2018-04-16 12:56] VITALS: BP 143/82
[2018-04-16 13:00] VITALS: BP 143/82
[2018-04-16 17:24] VITALS: BP 128/71
[2018-04-16 19:09] VITALS: BP 132/64
[2018-04-17 03:55] VITALS: BP 133/62
[2018-04-17 07:15] VITALS: BP 147/56
[2018-04-17 11:08] VITALS: BP 111/58
[2018-04-17] MEDS ORDERED: FIRVANQ50 MG/1 ML PO (13:37)
[2018-04-17 14:58] VITALS: BP 132/65
== END 2018-04-17 16:21 | DRG 871 ==
LOC: ER 14:31 → EROBS 16:02 → 4E 16:02 → 3W 16:02 → ICU 16:02 → 4E 18:41 → ICU 04-10 08:54 → 3W 04-12 18:20
PROVIDERS: Emergency Medicine; Hospitalist; Internal Medicine; Nurse Practitioner Gerontology; Specialist
DX: A41.9 Sepsis, unspecified organism (principal); L89.623 Pressure ulcer of left heel, stage 3; N17.0 Acute kidney failure with tubular necrosis; G93.40 Encephalopathy, unspecified; A04.71 Enterocolitis due to Clostridium difficile, recurrent; D68.59 Other primary thrombophilia; D62 Acute posthemorrhagic anemia; I47.1 Supraventricular tachycardia; I11.0 Hypertensive heart disease with heart failure; I50.9 Heart failure, unspecified; I71.2 Thoracic aortic aneurysm, without rupture; I25.10 Atherosclerotic heart disease of native coronary artery without angina pectoris; N40.0 Benign prostatic hyperplasia without lower urinary tract symptoms; E78.5 Hyperlipidemia, unspecified; E87.6 Hypokalemia; E86.0 Dehydration; I48.0 Paroxysmal atrial fibrillation; G40.909 Epilepsy, unspecified, not intractable, without status epilepticus; Z96.642 Presence of left artificial hip joint; E11.51 Type 2 diabetes mellitus with diabetic peripheral angiopathy without gangrene; Z90.49 Acquired absence of other specified parts of digestive tract; Z95.5 Presence of coronary angioplasty implant and graft; Z87.891 Personal history of nicotine dependence; Z79.02 Long term (current) use of antithrombotics/antiplatelets; Z79.82 Long term (current) use of aspirin; Z79.899 Other long term (current) drug therapy; Z88.0 Allergy status to penicillin
CPT/HCPCS: 10183; 10203; 10879

== ENCOUNTER → 2018-08-04 | Outpatient (CLI) | payer OTHER ==
[~2018-08-04] MED LIST changes: +FIRVANQ50 MG/1 ML PO
== END ==
LOC: ULTRA 10:54
DX: I13.0 Hypertensive heart and chronic kidney disease with heart failure and stage 1 through stage 4 chronic kidney disease, or unspecified chronic kidney disease (principal); N18.3 Chronic kidney disease, stage 3 (moderate); N28.1 Cyst of kidney, acquired; I50.9 Heart failure, unspecified; Z87.891 Personal history of nicotine dependence

== ENCOUNTER 2018-09-29 09:50 | Inpatient (IN) | payer OTHER ==
[~2018-09-29] VITALS: Ht 190.5 cm; Wt 91.6 kg
[2018-09-29 09:51] VITALS: BP 116/60
[2018-09-29 10:26] LABS: HEMATOCRIT 38.8 % (42.0-52.0); HEMOGLOBIN 12.9 gm/dL (14.0-18.0); MCH 33.3 pg (26.0-34.0); MCHC 33.3 g/dL (28.0-37.0); MCV 99.9 fL (80.0-100.0); PLATELET COUNT 201 thou/uL (150-400); RBC 3.88 mil/uL (4.50-6.00); RDW 15.1 % (10.5-14.5); WBC 11.6 thou/uL (4.0-11.0)
[2018-09-29 10:33] LABS: ANION GAP 9 mmol/L (7-16); BUN 46 mg/dL (7-18); CALCIUM 9.9 mg/dL (8.5-10.1); CHLORIDE 106 mmol/L (98-107); CO2 24 mmol/L (21-32); CREATININE 2.2 mg/dL (0.7-1.3); GLUCOSE 107 mg/dL (74-106); POTASSIUM 4.6 mmol/L (3.5-5.1); SODIUM 139 mmol/L (136-145)
[2018-09-29 10:37] LABS: URINE CLARITY CLEAR; URINE COLOR YELLOW
[2018-09-29 10:38] LABS: URINE BILIRUBIN NEGATIVE (Negative); URINE GLUCOSE-RANDOM* NEGATIVE (Negative); URINE KETONES NEGATIVE (Negative); URINE PROTEIN (DIPSTICK) NEGATIVE (Negative)
[2018-09-29 10:39] LABS: URINE BLOOD TRACE (Negative); URINE LEUKOCYTES-REFLEX NEGATIVE (Negative); URINE NITRITE-REFLEX POSITIVE (Negative); URINE UROBILINOGEN 0.2 E.U./dl (0.2-1.0)
[2018-09-29 10:43] LABS: TROPONIN-I <0.06 ng/mL (<0.06)
[2018-09-29 10:50] LABS: CASTS None Seen /LPF (None Seen); CRYSTALS None Seen /LPF (None Seen); SQUAMOUS 0-3 Few /LPF (0-3); URINE RBC None Seen /HPF (0-2); URINE WBC-REFLEX 0-5 Rare /HPF (0-5)
[2018-09-29 10:59] LABS: ABSOLUTE NEUTROPHILS 8.9 thou/uL (1.4-8.2); PLATELET ESTIMATE NORMAL
[2018-09-29 12:17] VITALS: BP 124/55
[2018-09-29 12:20] LABS: TSH 0.371 uIU/mL (0.358-3.740)
[2018-09-29] MEDS ORDERED: VITAMINC500 PO (12:47)
[2018-09-29] MEDS ORDERED: COLACE100 MG PO (12:47)
[2018-09-29] MEDS ORDERED: ZINC SULFATE 2220 MG PO (12:49)
[2018-09-29] MEDS ORDERED: CARTIA XT120 M1 PO (12:53)
[2018-09-29 14:42] VITALS: BP 119/55
--- NOTE | 2018-09-29 16:50 | EKG ---
[address] [place] [address] ELECTROCARDIOGRAM REPORT Name: MILTON KELLEY Room #: 421-P ADM IN M.R.#: [id number] Admission: 09/29/18 Attend Phys: Arianna Wolff Discharge: Date of : 32 Report #: [id number] THIS REPORT FOR: //name// [facility] ED Test Date: 2018-09-29 Test Time: 10:31:02 Pat Name: MLITON KELLEY Department: Room: 421 Gender: M Vocational Aide: JUNO : 1930 Requested By: Barry Frankel Order Number: [id number] MD: Gabino Snell Measurements Intervals [place] Rate: 86 P: -17 [place]: 184 QRS: -31 QRSD: 97 T: 52 QT: 352 QTc: 421 Interpretive Statements Sinus rhythm Left axis deviation Compared to ECG 04/15/2018 07:12:04 No significant changes Electronically Signed On 09-29-2018 16:50:17 INTERACTIVE MEDIA PROJECT MANAGER by Gabino Snell [email or web address] <ELECTRONICALLY SIGNED> By: Gabino Snell MD, [facility] 09/29/18 1650 1031 30 Gabino Snell MD, [facility] /EPI
--- NOTE | 2018-09-29 18:26 | NUR ---
ASSUMED CARE OF PT AT 12:40. ARRIVED TO ROOM FROM ED IN STABLE CONDITION. ADMISSION ASSESSMENT COMPLETED. DROWSY, BUT AROUSABLE. ALERT AND ORIENTED TO PERSON, PLACE, AND SITUATION. SOMETIMES CONFUSED AND FORGETFUL. AND SONS AT BEDSIDE THROUGHOUT DAY. HIGH FALL RISK PRECAUTIONS IN PLACE, BED ALARM ON, YELLOW WRIST BAND, AND YELLOW SOCKS. PT C/O NECK PAIN R/T FALL, PAIN MEDS GIVEN ORDERED. EXTREMELY WEAK AND FATIGUED. PATIENT BELONGINGS DOCUMENTED - PJ'S, SOCKS, AND SHOES. NO OTHER CHANGE IN STATUS.
[2018-09-29 20:04] VITALS: BP 149/70
[2018-09-30 04:15] VITALS: BP 149/78
--- NOTE | 2018-09-30 05:14 | NUR ---
Assumed care of pt at 1900. Pt confused overnight. Q2h turn. Pt incontinent overnight. Urine output very frequently. 2 bowel movements overnight. Pt tried to get out of bed when he has the urge to void. Pt is maximum assist when getting up from bed. Fall precautions in place. Will continue to monitor/
[2018-09-30 05:52] LABS: ALBUMIN 2.9 g/dL (3.4-5.0); CALCIUM 8.9 mg/dL (8.5-10.1); CREATININE 1.8 mg/dL (0.7-1.3); PHOSPHORUS 2.9 mg/dL (2.5-4.9); POTASSIUM 4.4 mmol/L (3.5-5.1)
[2018-09-30 07:58] VITALS: BP 143/85
[2018-09-30 12:00] VITALS: BP 126/64
--- NOTE | 2018-09-30 13:53 | NUR ---
ASSESSMENT-PT LIVES [place] AN [place]END[place] [facility] [place] . PT USES A ROLLER WALKER AND SOMETIMES THE TRANSPORT WC TO GET AROUND. HE HAS BEEN ON SERVICE WITH [facility] IN THE PAST. PT HAS BEEN TO [facility] FOR REHAB IN THE PAST. PT WAS TAKING HIS OWN SHOWER PRIOR TO ADMISSION. USES A CANE TO GET AROUND. IS CONCERNED ABOUT PT'S CONFUSION. THEY HAVE 7 SONS AND A DTR IN THE AREA. THERAPIES ARE WORKING WITH PT AND WILL MOST LIKELY NEED REHAB AGAIN. DISCUSSED WITH AND SON JERARDO. FOLLOWING TO ASSIST WITH DC PLANNING.
--- NOTE | 2018-09-30 14:52 | NUR ---
I have reviewed and concur with student documentation.
--- NOTE | 2018-09-30 14:56 | NUR ---
PATIENT WAS ADMITTED YESTERDAY FOR DEBILITY BUT WITH SUSPICION OF URINARY TRACT INFECTION. PATIENT WAS ORIENTED TO PERSON AND PLACE, BUT NOT TO TIME AND SITUATION IN AM. FAMILY ARRIVED AROUND LUNCHTIME. PATIENT BEGAN JOKING AROUND WITH STUDENT NURSE AND FAMILY BUT FAMILY REPORTED THAT THIS LEVEL OF SARCASM WAS NOT NORMAL FOR THE PATIENT. THROUGHOUT THE DAY, THE PATIENT HAD TWO INCIDENTS OF URINARY INCONTINENCE. PATIENT'S GENERAL PAIN LEVEL REMAINED AROUND A 7 ON A SCALE OF 1-10 FOR MOST OF DAY.
--- NOTE | 2018-09-30 15:12 | NUR ---
ASSUMED CARE OF PT AT 0700. ASSESSMENT COMPLETED. DROWSY, BUT AROUSABLE ORIENTED TO PERSON AND SITUATION ONLY. C/O SHOULDER PAIN, PAIN MEDS GIVEN ORDERED. PHYSICIAN NOTIFIED. NO NEW DIAGNOSTICS TESTS NEEDED AT THIS TIME. CLEAR LUNG SOUNDS, NO SOA. IRREGULAR HR, HX A.FIB, NO EDEMA. ACTIVE BOWEL SOUNDS, LAST BM TODAY - LARGE, FORMED, BROWN STOOL. PT INCONTINENT AT TIMES, NOT BASELINE. SKIN INTACT, REDNESS NOTED, BARRIER CREAM APPLIED NEEDED. ACHS, HX DM. INSULIN GIVEN PER SLIDING SCALE, NO INSULIN INDICATED. FAMILY AT BEDSIDE EARLIER. BED IN LOW POSITION AND BED ALARM ON. FAMILY STATES HE IS USUALLY NOT THIS CONFUSED. WILL CONTINUE TO MONITOR.
[2018-09-30 15:17] VITALS: BP 135/70
[2018-09-30 16:21] VITALS: BP 126/53
[2018-09-30 19:55] VITALS: BP 106/68
[2018-10-01 04:53] VITALS: BP 126/56; BP 26/56
--- NOTE | 2018-10-01 05:03 | NUR ---
ASSUMED PT CARE AROUND 1900. A&O TO PERSON ONLY. CONFUSED BUT PLEASANT. C/O LEFT HIP PAIN. TYLENOL GIVEN. PT SLEPT MOST OF THE NIGHT. OCCASSIONALLY RESTLESS AND IMPULSIVE WHEN HE NEEDED TO URINATE. PT HAD 2 LARGE BOWEL MOVEMENTS DURING THE NIGHT. Q2H TURN TO PREVENT SKIN BREAKDOWN. FALL PRECAUTIONS IN PLACE. PROGRESSING SLOWLY TOWARD POC GOALS. WILL CONTINUE TO MONITOR FURTHER.
[2018-10-01 07:35] VITALS: BP 129/46
[2018-10-01 12:12] LABS: FOLIC ACID 59.7 ng/mL (8.6-58.9)
--- NOTE | 2018-10-01 14:42 | NUR ---
S/W PT'S AND SON JERARDO TO DISCUSS SKILLED FACILITIES AND [facility] ASKED [employer] TO FAX REFERRALS. THEY ALSO WISH TO S/W DR PENNINGTON. HAD ALREADY LEFT FACILITY BUT WILL RETURN AT 1600. SON AND WILL PLAN TO MEET AT HOSPITAL AT 1600 TODAY.
--- NOTE | 2018-10-01 15:11 | NUR ---
FAXED REFERRAL TO [facility] SPOKE WITH ADM.KATIUSKA AND THEY CANNOT ACCEPT PT. DUE TO NO BEDS AVAILABLE FOR A COUPLE OF DAYS. FAXED REFERRAL TO [facility] AND LEFT MSG WITH NATALIYA IN ADM. OF REFERRAL AND ANTICIPATE DC TOMORROW IF THEY CAN ACCEPT PT. TO SEEK AUTH. DCP TO FOLLOW.
[2018-10-01 16:20] VITALS: BP 140/69
--- NOTE | 2018-10-01 20:09 | NUR ---
ASSUMED CARE OF PT AT 0700. ASSESSMENT COMPLETED. DROWSY, BUT AROUSABLE. ORIENTED TO PERSON AND PLACE ONLY. FLUCTUATIONS NOTED IN ORIENTATION THROUGHOUT THE DAY. FAMILY SAY PT IS NOT AT BASELINE AND MORE CONFUSED THAN NORMAL. AM MEDS GIVEN ORDERED. TYLENOL GIVEN FOR CHRONIC SHOULDER PAIN AND PAIN WITH MOVEMENT NEEDED. POOR APPETITE NOTED, PT ATE LITTLE FOR BREAKFAST, REFUSED LUNCH AND DINNER. ACHS, NO INSULIN REQUIRED PER SLIDING SCALE. PT HAD X3 EPISODES OF LIQUID BM, CHANGE FROM CONSISTENCY YESTERDAY. STOOL SAMPLE COLLECTED. C.DIFF PRECAUTIONS IN PLACE. FAMILY AT BEDSIDE THROUGHOUT THE DAY. BED ALARM ON, WEAKNESS NOTED, AND IMPULSIVE AT TIMES. PT RESTED MOST OF THE DAY, DENIES CONCERNS. PT IN STABLE CONDITION. END OF SHIFT.
[2018-10-01 21:02] VITALS: BP 119/59
[2018-10-02] VITALS (15 sets, daily range): BP systolic 44–107; BP diastolic 22–74
--- NOTE | 2018-10-02 01:10 | NUR ---
PT HAS BEEN MOSTLY SLEEPING. APEARS LETHARGIC. TAKING SIPS OF WATER AND ORANGE JUICE. HE IS ALERT TO SELF AND PLACE. LOOSE STOOLS. BEEN INCONTINENT. POSITIVE CDIFF. NEW ORDERS RECEIVED. PT HAS MOMENTS OF CONFUSION WHEN HE TRIES TO GET OUT OF BED. AT THIS TIME, FALL PREC IN PLACE, CALL LIGHT WITHIN REACH. WILL CONTINUE WITH POC TILL EOS.
[2018-10-02 05:29] LABS: CREATININE 1.9 mg/dL (0.7-1.3); POTASSIUM 3.6 mmol/L (3.5-5.1)
--- NOTE | 2018-10-02 10:46 | NUR ---
ASSESMENT COMPLETED. VSS. OX1-2. PLEASANTLY CONFUSED. C/O PAIN- TYLENOL GIVEN. NOTED SOA W/ EXERTION. SATS 95% ON RA. MEDS GIVEN ORDERED. PT ATE 25% OF BREAKFAST PER EQUAL OPPORTUNITY DIRECTOR REPORT- PROFESSIONAL SPORTS SCOUT ASSISTED PT WITH FEEDING. PT RESTING IN EBD AT THIS TIME. WILL CONT. TO MONITOR.
--- NOTE | 2018-10-02 17:46 | NUR ---
PT INCONTINENT OF URINE/STOOL. BUTTOCKS LOOKS RAW/RED. ORDERS FOR FMS OBTAINED. FMS TO DD. LIGHT BROWN LIQUID STOOL. REPOSITIONED ORDERED.
[2018-10-02 20:07] LABS: HEMATOCRIT 47.7 % (42.0-52.0); HEMOGLOBIN 15.6 gm/dL (14.0-18.0); MCHC 32.6 g/dL (28.0-37.0); MCV 101.2 fL (80.0-100.0); RBC 4.72 mil/uL (4.50-6.00); RDW 15.9 % (10.5-14.5)
[2018-10-02 20:12] LABS: CALCIUM 8.9 mg/dL (8.5-10.1); POTASSIUM 3.9 mmol/L (3.5-5.1)
[2018-10-02 20:16] LABS: CREATININE 3.3 mg/dL (0.7-1.3)
[2018-10-02 20:17] LABS: WBC 51.4 thou/uL (4.0-11.0)
--- NOTE | 2018-10-02 20:31 | NUR ---
RECEIVED REPORT ON PT AT 1900, CHECKED ON PT WITH OFF-GOING NURSE; HE WAS ALERT AND AWAKE, ABLE TO READ THE DAY RN'S NAME OFF THE BOARD. HAD NO COMPLAINTS, ASKED FOR HELP TURNING THE TV TO FACE HIM, BUT THE TV WAS OFF. PER REPORT, PT HAS BEEN CONFUSED AND SOMETIMES IMPULSIVE. ABOUT 20 MINUTES LATER, RN BEHAVIORAL HEALTH NOTIFIED RN OF LOW BP. AFTER CHECKING ON PT, HE WAS NOTED TO BE MORE LETHARGIC/STRUGGLING TO ANSWER QUESTIONS, BREATHING RAPIDLY, CLAMMY AND COOL TO TOUCH, BP 80'S/50'S, MAINTAING O2 SATS IN MID 90'S ON 2L NC. CALLED CONTINUOUS WAVE OPERATOR, OBTAINED ORDERS FOR EKG, CXR, LABS, FLUID BOLUS. PT FOUND TO BE IN AFIB RVR WITH A RATE IN 170'S. PT TRANSFERRED TO [facility], BEDSIDE REPORT GIVEN TO TEAGAN VALDEZ.
--- NOTE | 2018-10-02 22:47 | NUR ---
recived pt at 1999 transfered to icu at 2130 patient was a fib rvr on tele in the 160-170s. patient started on diltiazem drip and bolus given sepsis screen was positive provider aware. icu is to inform family. patients bp was improving upon transfer. wcm
--- NOTE | 2018-10-02 23:41 | NUR ---
pt c/o increased soa, bp low. master hearth technician called. see master hearth technician flowsheet.
[2018-10-03] VITALS (25 sets, daily range): BP systolic 61–137; BP diastolic 33–113
[2018-10-03 00:14] LABS: BUN 36 mg/dL (7-18); CHLORIDE 121 mmol/L (98-107); GLUCOSE 411 mg/dL (74-106); SODIUM 143 mmol/L (136-145)
[2018-10-03 00:18] LABS: ANION GAP 17 mmol/L (7-16)
[2018-10-03 00:22] LABS: CALCIUM < 5.0 mg/dL (8.5-10.1); CO2 5 mmol/L (21-32); CREATININE 1.6 mg/dL (0.7-1.3)
[2018-10-03 00:40] LABS: BE(vivo) -17.7 mmol/L (-2 to +3); HCO3 8.7 mmol/L (22.0-26.0); PO2 77.4 mmHg (80.0-100.0); sO2 92.6 % (92.0-98.0)
[2018-10-03 00:41] LABS: PCO2 23.4 mmHg (35.0-45.0); pH 7.186 (7.360-7.450)
--- NOTE | 2018-10-03 04:35 | NUR ---
ASSUMED CARE OF PATIENT FROM 3W RN. PATIENT ARRIVED TO ICU ROOM 237 AT 2145. LOW BLOOD PRESSURES, HIGH HEART RATE, DILTIAZEM INFUSING AT 15. INFUSION STOPPED PRESSURE CONTINUED TO DECREASE. PERIPHERAL IV INFILTRATED, NO OTHER LINE AVAILABLE. BUTTONHOLER ABLE TO START LONG IV IN L AC. LEVO INITIALTED TITRATED TO MAX DOSE SWIFTLY. VASO INITIATED WELL, ALSO TITRATED TO MAX DOSE. DAYANA INITIATED AND TITRATED TO MAX DOSE. NS BOLUS AT 1000MLS/HR ADMINISTERED X4 TO INCREASE BP. PATIENT BECOMING MORE LETHARGIC, EYES FIXED, PUPILS 2MM, NO RESPONSE TO PAINFUL STIMULI. FAMILY AT BEDSIDE. DR LAZO AT BEDSIDE TO PLACE CENTRAL LINE. NG TUBE PLACED FOR DECOMPRESSION AND ORAL VANC ADMINISTRATION. LOWER EXTREMITIES MOTTLED UPON ARRIVAL. IMPROVING WITH TIME. PATIENT NOW ABLE TO VOCALIZE BUT UNABLE TO FORM WORDS. FAMILY NOT WANTING INTUBATION OR LIFE SAVING MEASURE OF CPR/ACLS.
[2018-10-03 05:31] LABS: HEMATOCRIT 50.6 % (42.0-52.0); MCH 32.3 pg (26.0-34.0); MCHC 31.7 g/dL (28.0-37.0); MCV 102.2 fL (80.0-100.0); PLATELET COUNT 261 thou/uL (150-400); RBC 4.95 mil/uL (4.50-6.00); RDW 16.3 % (10.5-14.5)
[2018-10-03 05:33] LABS: WBC 66.9 thou/uL (4.0-11.0)
[2018-10-03 05:53] LABS: CALCIUM 7.8 mg/dL (8.5-10.1); CREATININE 3.3 mg/dL (0.7-1.3); POTASSIUM 4.9 mmol/L (3.5-5.1)
[2018-10-03 05:56] LABS: ALBUMIN 1.7 g/dL (3.4-5.0); PHOSPHORUS 4.9 mg/dL (2.5-4.9)
[2018-10-03 06:06] LABS: CREATININE 3.3 mg/dL (0.7-1.3); POTASSIUM 4.9 mmol/L (3.5-5.1)
[2018-10-03 06:07] LABS: CALCIUM 7.9 mg/dL (8.5-10.1)
[2018-10-03 07:17] LABS: ATYPICAL LYMPHS 1 %
[2018-10-03 07:19] LABS: ABSOLUTE NEUTROPHILS 57.5 thou/uL (1.4-8.2); METAMYELOCYTES 4 %; MYELOCYTES 3 %
[2018-10-03 07:20] LABS: ANISOCYTOSIS 1+; LARGE PLATELETS FEW
--- NOTE | 2018-10-03 07:22 | NUR ---
OCCUPATIONAL THERAPY WILL PLACE PT ON HOLD AT THIS TIME SECONDARY TO PT'S TRANSFER TO ICU WITH A CHANGE IN MEDICAL STATUS. WILL AWAIT RESTART ORDERS PER MD.
--- NOTE | 2018-10-03 07:28 | NUR ---
PATIENT STARTED ON AMIODARONE FOR A-FIB RVR CARDIZEM DECREASING BP AND HR STILL ELEVATED IN 170s. DR LAZO ORDERED 2.5 MG OF LOPRESSOR IV PUSH. VERIFIED WITH PHYSICIAN X2 PATIENT IS MAXED ON 3 GTTs FOR PRESSURE SUPPORT. ADMINISTERED 2.5 MG OVER 5 MINUTES. PRESSURES DECREASED NOTABLY, PATIENT EVENTUALLY RECOVERED. 5 MG OF LOPRESSOR ORDERED AGAIN. VERIFIED AGAIN WITH DR LAZO PATIENT IS ON LEVO, DAYANA, AND VASO GTTs ON MAX DOSES. LOPRESSOR ADMINISTERED BY ELECTRIFIER OPERATOR JULIO. DIG IV PUSH ADMINISTERED WELL. TOTAL OF 5 AMPS BICARB ADMINISTERED FOR LOW CO2. PATIENT BECOMING MORE RESPONSIVE IN AM. FAMILY IN WAITING ROOM. PT HR DROPPED FROM 130s TO 70s, THEN TO 50s, APPEARED TO BE JUNCTIONAL ON MONITOR. AMIODARONE PUT ON HOLD, ALICE FITZGERALD CONTACTED, ORDERS IN PROCESS OF BEING ENTERED WHEN MONITOR RANG ASYSTOLE AND PATIENT HAD NO PULSE. FAMILY CALLED TO BEDSIDE. TIME OF 0536. MTN, SPIRITUAL CARE, CONSULTED PHYSICIAN, ADMITTING PHYSICIAN NOTIFIED OF . PRONOUNCED BY RAJAT Galindo RN AND ENRIQUE Orellana RN. BODY TURNED OVER TO SECURITY.
--- NOTE | 2018-10-03 08:16 | EKG ---
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: [place] HAYS : 1930 Requested By: Shannan Roberson Order Number: [id number] MD: Jarrell Mittal Measurements Intervals [place] Rate: 171 P: [place]: QRS: -11 QRSD: 84 T: QT: 287 QTc: 484 Interpretive Statements Atrial fibrillation with rapid V-rate Inferior infarct, old Anterior infarct, old Lateral leads are also involved Compared to ECG 09/29/2018 10:31:02 Myocardial infarct finding now present Sinus rhythm no longer present Left-axis deviation no longer present Electronically Signed On 10-03-2018 8:16:27 DREDGE OPERATOR by Jarrell Mittal [email or web address] <ELECTRONICALLY SIGNED> By: Jarrell Mittal MD 10/03/18815 35 35 Jarrell Mittal MD /EPI
== END 2018-10-03 08:06 | DRG 871 ==
LOC: ER 09:50 → 4E 11:34 → EROBS 11:34 → 4E 12:54 → 3W 10-02 20:20 → ICU 10-02 22:00
PROVIDERS: Emergency Medicine; Nurse Practitioner Family; ADMIT Hospitalist
DX: A41.9 Sepsis, unspecified organism (principal); G92 Toxic encephalopathy; N17.0 Acute kidney failure with tubular necrosis; R65.21 Severe sepsis with septic shock; J96.01 Acute respiratory failure with hypoxia; N39.0 Urinary tract infection, site not specified; E46 Unspecified protein-calorie malnutrition; A04.72 Enterocolitis due to Clostridium difficile, not specified as recurrent; I50.9 Heart failure, unspecified; I25.10 Atherosclerotic heart disease of native coronary artery without angina pectoris; N40.0 Benign prostatic hyperplasia without lower urinary tract symptoms; G40.909 Epilepsy, unspecified, not intractable, without status epilepticus; R41.0 Disorientation, unspecified; I73.9 Peripheral vascular disease, unspecified; I48.2 Chronic atrial fibrillation; Z96.642 Presence of left artificial hip joint; E78.5 Hyperlipidemia, unspecified; E86.0 Dehydration; G89.29 Other chronic pain; M54.9 Dorsalgia, unspecified; Z66 Do not resuscitate; M62.84 Sarcopenia; R13.10 Dysphagia, unspecified; G93.89 Other specified disorders of brain; I11.0 Hypertensive heart disease with heart failure; E53.8 Deficiency of other specified B group vitamins; R73.9 Hyperglycemia, unspecified; Z95.5 Presence of coronary angioplasty implant and graft; Z88.0 Allergy status to penicillin; Z98.42 Cataract extraction status, left eye; Z98.41 Cataract extraction status, right eye; Z90.49 Acquired absence of other specified parts of digestive tract; Z87.891 Personal history of nicotine dependence; Z68.25 Body mass index [BMI] 25.0-25.9, adult; Z79.82 Long term (current) use of aspirin; Z79.899 Other long term (current) drug therapy
CPT/HCPCS: 10078; 10084